=== PATIENT | female | born 1950 | race Caucasian/White ===

== ENCOUNTER → 2016-11-11 13:19 | Outpatient (CLI) | payer MEDICARE | END | disposition home or self-care (01) | LOC: D.MAMMO 10:00 | DX: Z12.31 Encounter for screening mammogram for malignant neoplasm of breast (principal) ==

== ENCOUNTER 2016-11-19 10:26 | Outpatient (CLI) | payer MEDICARE ==
[~2016-11-19] VITALS: Ht 175.3 cm; Wt 90.9 kg
--- NOTE | ~2016-11-19 | HEMODYNAMI ---
PATIENT:SABAS JUÁREZ MEDICAL RECORD: [id number] : 48 LOCATION:SKY ADMISSION DATE: 11/19/16 Generatedon:11/19/201613:26 Patient name: SABAS JUÁREZ Patient #: [id number] SSN: : 1950 Date of study: 11/19/2016 Page: Of Hemodynamic Procedure Report Patient Data Patient Demographics Procedure consent was obtained First Name: SABAS Gender: Female Last Name: MARQUITA : 1950 [facility] Initial: MILES Age: 66 year(s) Patient #: [id number] Race: Unknown Additional ID: [id number] Contact details Address: [address] [place] [address] State: [place] City: [place] Zip code: [address] Past Medical History Allergies Allergen Reaction Date Comments Reported Other 11/19/2016 morphine,nirtoglycerin, allergy penicillins, sulfa, tramadol. Admission Admission Data Admission Date: 11/19/2016 Admission Time: 10:26 Admit Source: Other Lab Results Lab Result Date: 11/19/2016 Lab Result Time: 11:05 Biochemistry Name Units Result Min Max BUN mg/dl 5 -*(----)-- 7 18 Creatinine mg/dl 0.7 --(*---)-- 0.6 1.3 CBC Name Units Result Min Max Hematocrit % 38.7 *-(----)-- 42 54 Hemoglobin g/dl 13.2 -*(----)-- 13.5 17.5 Procedure Procedure Types Cath Procedure Diagnostic Procedure LHC LHC w/Coronaries Procedure Description Procedure Date Procedure Date: 11/19/2016 Procedure Start Time: 13:11 Procedure End Time: 13:25 Procedure Staff Name Function Braxton Valenzuela MD Performing Physician Lauryn Isabel RT Scrub Marcus Du RN Nurse Vaughn Osborn RT Monitor Procedure Data Cath Procedure Fluoroscopy Diagnostic fluoroscopy Total fluoroscopy Time: 1.3 time: 1.3 min min Diagnostic fluoroscopy Total fluoroscopy dose: 288 dose: 288 mGy mGy Contrast Material Contrast Material Type Amount (ml) Isovue 300 59 Entry Location Entry Primary Successful Side Size Upsize Upsize Entry Closure Succes sful Closure Location (Fr) 1 (Fr) 2 (Fr) Remarks Device Remarks Femoral Left 5 Fr Exoseal artery Estimated blood loss: 5 ml Diagnostic catheters Device Type Used For End Catheter Placement Cordis 5Fr JL 4.0 Procedure Catheter (MP) Cordis 5Fr 3DRC Catheter Procedure (MP) Cordis 5Fr Pigtail Procedure Catheter (MP) Procedure Complications No complications Procedure Medications Medication Administration Route Dosage Oxygen NC 2 l/min Lidocaine 2% added to field 20 Heparin Flush Bag added to field 2 bags (1000units/500ml NS) 0.9% NaCl I.V. 100 ml/hr Versed I.V. 1 mg Fentanyl I.V. 50 mcg Versed I.V. 1 mg Fentanyl I.V. 50 mcg Versed I.V. 1 mg Fentanyl I.V. 50 mcg Hemodynamics Rest HGB: 13.2 (g/dl) Heart Rate: 77 (bpm) Pressure Samples Time Site Value (mmHg) Purpose Heart Use Rate(bpm) 13:17 LV 165/-1,26 Snapshot 79 Gradients Valve Time Site Site Mean SEP/DFP Peak To Heart Use 1 2 (mmHg) (sec/min) Peak Rate (mmHg) (bpm) Aortic 13:17 LV AO 79 Snapshots Pre Cath Intra NCS Post Cath Vital Signs Time Heart Resp SPO2 etCO2 [id number] NIBP (mmHg) Rhythm Pain Sedation Rate (ipm) (%) (mmHg) (mmHg) Status Level (bpm) 12:53:25 83 17 100 0 0 No Cuff NSR 0 (11) 10(A) , No pain 12:56:15 82 16 96 0 0 129/73(103) NSR 0 (11) 10(A) , No pain 13:00:28 77 16 95 0 0 121/69(95) NSR 0 (11) 10(A) , No pain 13:04:40 73 17 97 0 0 125/69(100) NSR 0 (11) 10(A) , No pain 13:08:53 75 16 96 0 0 128/71(97) NSR 0 (11) 10(A) , No pain 13:13:06 74 17 95 0 0 117/71(85) NSR 0 (11) 9(A) , No pain 13:17:57 81 18 96 0 0 151/78(113) NSR 0 (11) 9(A) , No pain 13:22:07 19 17 96 0 0 129/72(110) NSR 0 (11) 10(A) , No pain Medications Time Medication Route Dose Verified Delivered Reason Notes Effe ctiveness by by 12:58:06 Oxygen NC 2 Braxton Buffie used for l/min [facility] Romario Du RN procedure 12:58:16 Lidocaine 2% added 20ml Braxton Braxton for local to vial [facility] anesthetic field MD WALKER 12:58:22 Heparin Flush added 2 Braxton Braxton used for Bag to bags [facility] procedure (1000units/500ml field MD WALKER NS) 12:58:30 0.9% NaCl I.V. 100 Braxton Buffie Per ml/hr [facility] Romario Du RN physician 13:07:02 Fentanyl I.V. 50 Braxton Feliie for mcg [facility] Romario Du RN sedation 13:07:57 Versed I.V. 1 mg Braxton Buffie for [facility] Romario Du RN sedation 13:11:54 Versed I.V. 1 mg Braxton Buffie for [facility] Romario Du RN sedation 13:11:57 Fentanyl I.V. 50 Braxton Buff[address] for mcg [facility] Romario Du RN sedation 13:16:18 Versed I.V. 1 mg Braxton Buffie for [facility] Romario Du RN sedation 13:16:22 Fentanyl I.V. 50 Braxton Buffie for [facility] Du RN sedation Procedure Log Time Note 12:28:38 Informed consent obtained and on chart 12:28:41 Admit Source: Other 12:30:22 Procedure type changed to Cath procedure, Diagnostic procedure, LHC, C w/Coronaries 12:30:31 Diagnostic Cath status Elective 12:30:35 Time tracking: Regular hours 12:30:39 Plan of Care:Hemodynamics will remain stable., Cardiac rhythm will remain stable., Comfort level will be maintained., Respiratory function will remain adequate., Patient/ family verbilizes understanding of procedure., Procedure tolerated without complication., Recovers from procedure without complications.. 12:30:47 Marcus Du RN sent for patient. Start room use. 12:30:59 H&P Date Dictated: 11/05/2016 Within 30 days and on chart., H&P Addendum completed by physician on day of procedure. (MUST COMPLETE FOR ALL OUTPATIENTS). 12:33:20 Lab Result : BUN 5 mg/dl 12:33:20 Lab Result : Hematocrit 38.7 % 12:33:20 Lab Result : Hemoglobin 13.2 g/dl 12:33:20 Lab Result : Creatinine 0.7 mg/dl 12:34:46 Patient allergic to Other allergymorphine,nirtoglycerin, penicillins, sulfa, tramadol. 12:43:31 Patient received from Pre/Post Procedure Room to CCL 1 Alert and oriented. Tansferred to table in Supine position. 12:43:32 Warm blankets applied, and jazzy hugger turned on for patient comfort. 12:43:33 Correct patient and procedure confirmed by team. 12:43:33 ECG and BP/O2 sat monitors applied to patient. 12:43:47 Full Disclosure recording started 12:50:50 Vital chart was started 12:58:06 Oxygen 2 l/min NC was administered by Marcus Du RN; used for procedure; 12:58:16 Lidocaine 2% 20ml vial added to field was administered by Braxton Valenzuela MD; for local anesthetic; 12:58:22 Heparin Flush Bag (1000units/500ml NS) 2 bags added to field was administered by Braxton Valenzuela MD; used for procedure; 12:58:30 0.9% NaCl 100 ml/hr I.V. was administered by Marcus Du RN; Per physician; 12:59:25 Baseline sample Acquired. 12:59:34 Rhythm: sinus rhythm 13:00:21 H&P Date Dictated: 11/05/2016 Within 30 days and on chart., H&P Addendum completed by physician on day of procedure. (MUST COMPLETE FOR ALL OUTPATIENTS). 13:00:23 Pre-procedure instructions explained to patient. 13:00:23 Pre-op teaching completed and patient verbalized understanding. 13:00:26 Family in patients room. 13:00:27 Patient NPO since Midnight. 13:00:30 Is the patient allergic to Iodine/contrast media? No. 13:00:32 Is patient on blood thinner?No 13:01:09 Patient diabetic? No. 13:01:21 Previous problem with sedation/anesthesia? No ? 13:01:22 Snore? Yes 13:01:27 Sleep apnea? No 13:01:29 Deviated septum? No 13:01:29 Opens mouth fully? Yes 13:01:32 Sticks out tongue? Yes 13:01:34 Airway obstruction? No ? 13:01:41 Dentures? Yes in tight 13:01:47 Pre procedure: left dorsailis pedis pulse 2+ Normal; easily identifiable; not easily obliterated 13:01:49 Patient pain scale 0/10 ?. 13:02:19 IV patent on arrival in left wrist with 0.9% NaCl at [facility]. 13:02:21 Lab results completed and on chart. 13:02:33 Left groin area was prepped with chlora-prep and draped in sterile fashion 13:02:46 Alarms reviewed by R. N. 13:02:46 Sharps counted by scrub and verified by R.N. 13:02:49 Use device set Femoral Dx 13:02:49 Tegaderm 4 x 4 opened to sterile field. 13:02:51 Acist Manifold opened to sterile field. 13:02:51 Acist Hand Control opened to sterile field. 13:02:52 Acist Syringe opened to sterile field. 13:02:53 Bag Decanter opened to sterile field. 13:02:53 Medline Cath Pack opened to sterile field. 13:02:54 Terumo 5Fr [facility] Sheath opened to sterile field. 13:02:54 St Beny 260cm J .035 wire opened to sterile field. 13:02:55 Diagnostic Infinity 5Fr Multipack catheter opened to sterile field. 13:05:20 Zero performed for pressure channel P1 13:05:24 Zero performed for pressure channel P1 13:05:27 Zero performed for pressure channel P1 13:06:41 Physician arrived 13:06:42 --------ALL STOP TIME OUT------ 13:06:43 Final Timeout: patient, procedure, and site verified with staff and physician. All members of the team are in agreement. 13:06:44 Left groin site verified by team. 13:06:47 Physical assessment completed. ASA score P 2 - A patient with mild systemic disease as per Braxton Valenzuela MD. 13:06:50 Sedation plan: IV Moderate Sedation Versed, Fentanyl 13:07:02 Fentanyl 50 mcg I.V. was administered by Marcus Du RN; for sedation; 13:07:57 Versed 1 mg I.V. was administered by Marcus Du RN; for sedation; 13:11:11 Procedure started. 13:11:14 Local anesthetic to left femerol artery with Lidocaine 2% by Braxton Valenzuela MD.INITIAL ACCESS ONLY 13:11:54 Versed 1 mg I.V. was administered by Marcus Du RN; for sedation; 13:11:57 Fentanyl 50 mcg I.V. was administered by Marcus Du RN; for sedation; 13:12:07 A 5 Fr sheath was inserted into the Left Femoral artery 13:12:40 A Cordis 5Fr JL 4.0 Catheter (MP) was advanced over the wire and used for Procedure. 13:13:44 LCA angiography performed. 13:14:53 Catheter exchanged over wire. 13:14:57 A Cordis 5Fr 3DRC Catheter (MP) was advanced over the wire and used for Procedure. 13:15:54 RCA angiography performed. 13:16:02 Catheter exchanged over wire. 13:16:07 A Cordis 5Fr Pigtail Catheter (MP) was advanced over the wire and used for Procedure. 13:16:18 Versed 1 mg I.V. was administered by Marcus Du RN; for sedation; 13:16:22 Fentanyl 50 mcg I.V. was administered by Marcus Du RN; for sedation; 13:17:22 LV gram done using ESTRELLA 13:17:25 Injector settings: Ml/sec: 10, Volume: 20, 13:17:29 EF : 55 % 13:17:43 Cordis 5Fr Exoseal opened to sterile field. 13:17:47 Catheter removed. 13:17:59 Sheath removed intact; hemostasis achieved with Exoseal to the Left Femoral artery. 13:18:00 Procedure ended.(Physican Out) 13:18:22 Contrast amount:Isovue 300 59ml. 13:18:33 Fluoroscopy time 01.30 minutes. 13:18:37 Fluoroscopy dose: 288 mGy 13:18:37 Flurop Dose total: 288 13:19:06 Sharps counted by scrub and verified by R.N. 13:19:08 Insertion/operative site no bleeding no hematoma. 13:19:11 Post-op/insertion site Left Femoral artery dressed using a 4 x 4 and Tegaderm. 13:19:15 Post left femerol artery:stable, soft, clean and dry 13:19:17 Post Procedure Pulses reassessed and unchanged 13:19:19 Post-procedure physical assessment completed. ASA score P 2 - A patient with mild systemic disease as per Braxton Valenzuela MD. 13:19:22 Post procedure rhythm: unchanged. 13:19:24 Estimated blood loss: 5 ml 13:19:25 Post procedure instruction explained to patient.Patient verbalizes understanding. 13:19:25 Patient needs reinforcement of post procedure teaching. 13:25:18 Procedure and supply charges have been captured, reviewed, submitted and are correct. 13:25:22 Procedure Complication : No complications 13:25:26 Vital chart was stopped 13:25:27 See physician's report for complete and final results. 13:25:29 Report given to Pre/Post Procedure Room. 13:25:31 Patient transfered to Pre/Post Procedure Room with Stretcher. 13:25:37 Procedure ended. 13:25:37 Full Disclosure recording stopped 13:25:49 End room use (Document Last) Device Usage Item Name Manufacture Quantity Catalog Hospital Part Current Minimal Lo t# / Number Charge Number Stock Stock Serial# Code Tegaderm 4 3M 1 1626W [id number] [id number] 5 x 4 Acist Acist 1 48131 712374 131504 989126 5 Manifold [employer] Inc Acist Hand Acist 1 19269 010886 551293 711023 5 Control Medical Systems Inc Acist Acist 1 83546 570097 159879 765786 20 Syringe Medical Systems Inc Bag Microtek 1 2002S 222991 10269 296536 5 DecGovenlock [employer] Medline Cardinal 1 [id number] 556144 32761 919589 5 Cath Pack Health Terumo 5Fr Terumo 1 [id number] 531237 398354 369515 [address] St Beny 1 799295 096556 204993 890274 30 260cm J .035 wire Diagnostic Cardinal 1 VG8937 908189 80506 463368 30 bCODE 5Fr Multipack catheter Cordis 5Fr Cardinal 1 391380 5 JL 4.0 Health Catheter (MP) Cordis 5Fr Cardinal 1 097750 5 3DRC Health Catheter (MP) Cordis 5Fr Cardinal 1 019300 5 Pigtail Health Catheter (MP) Cordis 5Fr Cardinal 1 EX500 006303 227051 467643 10 [facility] Health Signature Audit [place] Stage Time Signature Unsigned Intra-Procedure 11/19/2016 Vaughn Osborn 1:26:08 PM RT(R) Signatures Monitor : Vaughn Osborn RT Signature : Date : Time : [address] [place] [address]
[2016-11-19] MEDS ORDERED: TYLENOL W/CODEI1 TAB PO (10:53)
[2016-11-19] MEDS ORDERED: CYCLOBENZAPRINE10 MG PO (10:53)
[2016-11-19] MEDS ORDERED: ALENDRONATE SOD70 MG PO (10:54)
[2016-11-19] MEDS ORDERED: FISH OIL 1,2001 CAP PO (10:55)
[2016-11-19] MEDS ORDERED: VITAMIN E400 UNI2 PO (10:55)
[2016-11-19] MEDS ORDERED: EZFE 200200 MG PO (10:55)
[2016-11-19] MEDS ORDERED: VITAMIN D31000 UNIT PO (10:56)
[2016-11-19 11:08] VITALS: BP 142/77; Ht 175.3 cm; Wt 90.9 kg
[2016-11-19 11:12] LABS: HEMATOCRIT 38.7 % (36.0-48.0); HEMOGLOBIN 13.2 g/dL (12-16); MCH 30.6 pg (26.0-34.0); MCHC 34.1 g/dL (31.0-37.0); MCV 89.8 fL (80.0-100.0); MEAN PLATELET VOLUME 11.5 fL (7.4-10.4); RBC 4.31 10x6/uL (4.00-5.40); RDW 13.3 % (11.5-14.5); WBC 2.7 10x3/uL (4.8-10.8)
[2016-11-19 11:22] LABS: CALC OSMOLALITY 277 mosm/kg (275-300); CALCIUM 8.3 mg/dL (8.5-10.1); CARBON DIOXIDE 28.4 mmol/L (21.0-32.0); CHLORIDE - SERUM 107 mmol/L (98-107); CREATININE - SERUM 0.7 mg/dL (0.6-1.3); GLUCOSE 107 mg/dL (74-106); SODIUM 141 mmol/L (136-145); UREA NITROGEN 5 mg/dL (7-18); eGFR NON AFRICAN AMERICAN 88 mL/min (90-120)
[2016-11-19 11:37] LABS: PLATELET COUNT 49 10x3/uL (130-400)
[2016-11-19 12:19] LABS: EOSINOPHILS 2 % (0-7); LYMPHOCYTES 28 % (15-50); MONOCYTES 4 % (2-11); NEUTROPHILS 65 % (40-80); PLATELET ESTIMATE DECREASED; ROULEAUX OCC
--- NOTE | 2016-11-19 13:39 | NUR ---
1330 RECIEVED TO ROOM VIA STRETCHER FROM SCRATCHER TENDER WITH REPORTS OF A CLEAN CATH. 5 FR EXOSEAL CDI NO BLEEDING NO HEMATOMA NOTED. INSTRUCTED PATIENT TO KEEP HEAD FLAT ON PILLOW WITH LLE STRAIGHT.
--- NOTE | 2016-11-19 14:01 | NUR ---
5 FR EXOSEAL L/GROIN CDI NO BLEEDING NO HEMATOMA NOTED. VSS WITH CHEST PAIN DENIED WILL MONITOR
--- NOTE | 2016-11-19 14:35 | NUR ---
L/GROIN CDI NO BLEEDING NO HEMATOMA NOTED. FAMILY AT SIDE
--- NOTE | 2016-11-19 15:02 | NUR ---
REPOSITIONED TO SITTING WITH HOB UP 45 DEGREES. 5 FR EXOSEAL L/GROIN CDI NO BLEEDING NO HEMATOMA NOTED. CHEST PAIN IS DENIED WITH VSS,SANDWICH AND SODA OPENED WITH FAMILY TO ASSIST
--- NOTE | 2016-11-19 15:17 | NUR ---
PIV REMOVED WITH DRESSING APPLIED. L/GROIN REMAINS CDI NO BLEEDING NO HEMATOMA NOTED. CHEST PAIN IS DENIED. PATIENT UP TO GET DRESSED FOR DISCHARGE HOME WITH FAMILY
--- NOTE | 2016-11-19 15:31 | NUR ---
VERBAL AND WRITTEN DISCHARGE GONE OVER WITH PATIENT AND FAMILY. L/GROIN REMIANS CDI NO BLEEDING NO HEMATOMA NOTED. CHEST PAIN IS DENIED. LEFT VIA WC TO PARKING FOR TRANSPORT HOME
--- NOTE | 2016-11-20 14:41 | OP ---
PATIENT NAME: SABAS JUÁREZ MEDICAL RECORD: [id number] :48 LOCATION:D.CAT ADMISSION DATE: SURGEON: MANISHA MARIE MD DATE OF OPERATION: 11/19/2016 PROCEDURES: Left heart catheterization, selective coronary angiography, left femoral artery approach. CATHETERS: A 5-Australian sheath, 5/4 left and right Reji, 5/4 pig. The procedure was well tolerated. The patient returned to the bruce, sheath removed. ExoSeal device placed. FINDINGS: Left ventriculography in the 30-degree ESTRELLA view: Normal wall motion, normal systolic function. CORONARY ANATOMY: LEFT MAIN: Left main is free of disease. LAD: Free of disease in the diagonal system. CIRCUMFLEX: Free of disease in the marginal system. RIGHT CORONARY ARTERY: Dominant artery, gives rise to PDA, free of disease. IMPRESSION: Normal left ventricular systolic function, normal coronary anatomy. TRANSINT:[id number] Voice Confirmation ID: [id number] DOCUMENT ID: [id number] MANISHA MARIE MD at 1441 CC: [id number] DICTATION DATE: 11/19/16 1325 AIR CONDITIONING MECHANIC INDUSTRIAL: 11/19/16 1821 DEP CLI 11/19/16 [address] [place] [address]
== END 2016-11-19 15:35 ==
LOC: D.CATH 10:26
PROVIDERS: Internal Medicine Interventional Cardiology
DX: I20.9 Angina pectoris, unspecified (principal); Z01.812 Encounter for preprocedural laboratory examination

== ENCOUNTER → 2016-11-29 08:06 | Outpatient (CLI) | payer MEDICARE ==
[2016-11-19 11:08] VITALS: BMI 29.6
[~2016-11-29 08:06] MED LIST: ALENDRONATE SOD70 MG PO; CYCLOBENZAPRINE10 MG PO; EZFE 200200 MG PO; FISH OIL 1,2001 CAP PO; TYLENOL W/CODEI1 TAB PO; VITAMIN D31000 UNIT PO; VITAMIN E400 UNI2 PO
[2016-11-29 09:19] LABS: BASOPHILS 0.6 % (0-2); EOSINOPHILS 1.8 % (0-7); HEMATOCRIT 39.5 % (36.0-48.0); HEMOGLOBIN 13.8 g/dL (12-16); LYMPHOCYTES 26.2 % (15-50); MCH 31.2 pg (26.0-34.0); MCHC 34.9 g/dL (31.0-37.0); MCV 89.2 fL (80.0-100.0); MEAN PLATELET VOLUME 12.2 fL (7.4-10.4); MONOCYTES 5.7 % (2-11); NEUTROPHILS 65.7 % (40-80); RBC 4.43 10x6/uL (4.00-5.40); RDW 13.5 % (11.5-14.5); WBC 3.4 10x3/uL (4.8-10.8)
[2016-11-29 09:32] LABS: INR 1.19 (0.85-1.17)
[2016-11-29 09:35] LABS: PLATELET COUNT 66 10x3/uL (130-400)
[2016-11-29 09:53] LABS: ALBUMIN 3.5 g/dL (3.4-5.0); ALKALINE PHOSPHATASE 99 U/L (46-116); ALT (SGPT) 41 U/L (10-68); BILIRUBIN - DIRECT 0.33 mg/dL (0.00-0.30); BILIRUBIN - INDIRECT 1.22 mg/dL (0.00-1.00); BILIRUBIN - TOTAL 1.55 mg/dL (0.2-1.3); CALC OSMOLALITY 274 mosm/kg (275-300); CALCIUM 8.6 mg/dL (8.5-10.1); CARBON DIOXIDE 27.7 mmol/L (21.0-32.0); CHLORIDE - SERUM 103 mmol/L (98-107); CHOLESTEROL, TOTAL 146 mg/dL (0-200); CREATININE - SERUM 0.8 mg/dL (0.6-1.3); FERRITIN 282 ng/mL (3-244); GAMMA GT 54 U/L (5-85); GLUCOSE 120 mg/dL (74-106); HDL CHOLESTEROL 49 mg/dL (32-96); LDL CHOLESTEROL 80 mg/dL (0-100); LDL-HDL RATIO 1.6 ratio (1.5-3.5); POTASSIUM - SERUM 4.1 mmol/L (3.5-5.1); PROTEIN - SERUM 7.8 g/dL (6.4-8.2); SODIUM 138 mmol/L (136-145); TRIGLYCERIDE 88 mg/dL (30-200); UREA NITROGEN 6 mg/dL (7-18); eGFR NON AFRICAN AMERICAN 76 mL/min (90-120)
[2016-11-29 10:03] LABS: % SATURATION 52 % (15-55); IRON 134 ug/dl (35-150); TOTAL IRON BIND CAPACITY 256 ug/dl (260-445); UNSAT IRON BIND CAPACITY 122 ug/dl (150-375)
[2016-11-30 07:20] LABS: HEPATITIS C ANTIBODY <0.1 (0.0-0.9)
[2016-12-02 09:09] LABS: ANA REFLEX - DIRECT Negative (Negative)
[2016-12-02 14:14] LABS: HAPTOGLOBIN <10 mg/dL (34-200)
[2016-12-02 15:18] LABS: MITOCHONDRIAL ANTIBODY 14.6 Units (0.0-20.0); SMOOTH MUSCLE ABS (ACTIN) 39 Units (0-19)
== END | disposition home or self-care (01) ==
LOC: D.US 08:06
PROVIDERS: Internal Medicine Gastroenterology
DX: R74.8 Abnormal levels of other serum enzymes (principal)

== ENCOUNTER → 2016-12-10 16:46 | Outpatient (CLI) | payer MEDICARE ==
[2016-11-19 11:08] VITALS: BMI 29.6
== END | disposition home or self-care (01) ==
LOC: D.MAMMO 09:00
DX: R92.8 Other abnormal and inconclusive findings on diagnostic imaging of breast (principal)

== ENCOUNTER 2016-12-13 10:01 | Outpatient (CLI) | payer MEDICARE ==
[~2016-12-13] VITALS: Ht 175.3 cm; Wt 90.0 kg
[2016-12-13 10:50] LABS: BASOPHILS 0.3 % (0-2); EOSINOPHILS 2.9 % (0-7); HEMATOCRIT 39.7 % (36.0-48.0); HEMOGLOBIN 13.5 g/dL (12-16); LYMPHOCYTES 32.9 % (15-50); MCH 30.5 pg (26.0-34.0); MCV 89.8 fL (80.0-100.0); MEAN PLATELET VOLUME 12.4 fL (7.4-10.4); MONOCYTES 5.5 % (2-11); NEUTROPHILS 58.4 % (40-80); PLATELET COUNT 65 10x3/uL (130-400); RBC 4.42 10x6/uL (4.00-5.40); RDW 13.3 % (11.5-14.5); WBC 3.1 10x3/uL (4.8-10.8)
[2016-12-13 11:06] LABS: ANION GAP 12.3 mmol/L (8-16); CALCIUM 8.8 mg/dL (8.5-10.1); CARBON DIOXIDE 27.4 mmol/L (21.0-32.0); CREATININE - SERUM 0.9 mg/dL (0.6-1.3); POTASSIUM - SERUM 3.7 mmol/L (3.5-5.1)
[2016-12-13 11:09] LABS: APTT 34.4 SECONDS (22.8-39.4); INR 1.27 (0.85-1.17); PROTIME 15.8 SECONDS (11.6-15.0)
[2016-12-13 11:23] VITALS: BP 126/79; Ht 175.3 cm; Wt 90.0 kg
--- NOTE | 2016-12-13 19:57 | NUR ---
1800 IV DC WITH CATHER TIP INTACT
== END 2016-12-13 18:40 | disposition home or self-care (01) ==
LOC: D.OPS 10:01 → D.CT 14:00 → D.OPS 18:40
PROVIDERS: General Practice
DX: R79.89 Other specified abnormal findings of blood chemistry (principal); J44.9 Chronic obstructive pulmonary disease, unspecified; K44.9 Diaphragmatic hernia without obstruction or gangrene; Z01.812 Encounter for preprocedural laboratory examination

== ENCOUNTER → 2017-01-02 09:03 | Outpatient (CLI) | payer MEDICARE ==
[2016-12-13 11:23] VITALS: BMI 29.3
[2017-01-02 09:29] LABS: INR 1.31 (0.85-1.17); PROTIME 16.2 SECONDS (11.6-15.0)
== END | disposition home or self-care (01) ==
LOC: D.LAB 08:15
PROVIDERS: Internal Medicine Gastroenterology
DX: D69.6 Thrombocytopenia, unspecified (principal)

== ENCOUNTER → 2017-01-06 10:25 | Day surgery (SDC) | payer MEDICARE ==
[~2017-01-06] VITALS: Ht 175.3 cm; Wt 87.3 kg
--- NOTE | ~2017-01-06 | OP ---
PATIENT NAME: SABAS JUÁREZ MEDICAL RECORD: [id number] :48 LOCATION:BRANDI ADMISSION DATE: SURGEON: NED DARLING DO DATE OF OPERATION: 01/06/2017 PROCEDURE: Colonoscopy with polypectomy and submucosal injection. INDICATION FOR PROCEDURE: Positive stool guaiac. SCOPE: Olympus video pediatric colonoscope. MEDICATIONS: Propofol 780 mg IV per anesthesia. WITHDRAWAL TIME: 49 minutes. ESTIMATED BLOOD LOSS: Less than 5 mL. COMPLICATIONS: None. FINDINGS: Informed consent was given. The patient was made comfortable with the above medication. After reaching an adequate level of sedation by slow IV push, the patient was placed on her left side. A digital rectal examination was performed and revealed some external hemorrhoids, which were nonbleeding and small. The endoscope was then advanced under direct visualization through the rectum to the cecum with visualization of the appendiceal orifice and the ileocecal valve. The scope was slowly withdrawn and mucosa was carefully examined. The prep quality was good. In the descending colon, there were 2 benign-appearing sessile polyps measuring approximately 5 mm to 6 mm in diameter. They were both removed using a hot snare in one piece and completely retrieved. In the rectum, there were 3 benign-appearing sessile polyps, which could be hyperplastic, located in the rectum. They were measuring from 6 mm to 8 mm in diameter. They were all removed in one piece using hot snare and completely retrieved. In the sigmoid colon, there was a large polyp which measured approximately 2 cm to 3 cm in size. It occupied approximately 75% of the lumen of the sigmoid colon. It was located approximately 30 cm from the anal verge. A polypectomy was attempted on this polyp. Multiple piecemeal resections were performed using a hot snare. Once enough of the polyp was removed, it was evident that this was a larger polyp that initially anticipated. It appeared to be infiltrative into the wall of the colon at the base and was also bleeding extensively, likely related to the patient's low platelet level, in 50,000s. Some cauterization was performed to the best of my ability to slow and stop the bleeding from the polyp site. Tattoo was placed both proximally and distally for marking for future endoscopic or surgical resections required. Scope was then withdrawn from the patient. The patient tolerated the procedure well and there were no complications. IMPRESSIONS: 1. Multiple polyps as described above. All were removed except for the sigmoid polyp. A large portion of this polyp was removed, but there was still residual base. Tattoo was placed proximally and distally to aid in future resection. 2. Retroflexion was performed on the examination and there were both internal and external hemorrhoids. PLAN AND RECOMMENDATIONS: 1. Discharge home when recovery parameters are met. OPERATIVE REPORT [id number] SABAS JUÁREZ 2. Monitor for bleeding. 3. Avoid NSAIDs for 10-14 days. 4. Continue current medications. 5. High-fiber diet. 6. Referral to Dr. Honeycutt for consideration of APC therapy versus surgical resection pending results of the polyp pathology. 7. Recall colonoscopy will be dependent on future interventions for residual polyp tissue. TRANSINT:[id number] Voice Confirmation ID: [id number] DOCUMENT ID: [id number] NED DARLING DO CC: [id number] DICTATION DATE: 01/06/17 1547 PRINCIPAL GIFTS OFFICER: 01/06/172009 [facility] [address] [place] [address]
[2017-01-06 11:53] LABS: INR 1.27 (0.85-1.17); PROTIME 15.8 SECONDS (11.6-15.0)
[2017-01-06 12:57] LABS: HEMATOCRIT 40.1 % (36.0-48.0); HEMOGLOBIN 13.8 g/dL (12-16); MCH 30.7 pg (26.0-34.0); MCHC 34.4 g/dL (31.0-37.0); MCV 89.3 fL (80.0-100.0); MEAN PLATELET VOLUME 13.6 fL (7.4-10.4); RBC 4.49 10x6/uL (4.00-5.40); RDW 13.4 % (11.5-14.5)
[2017-01-06 13:08] VITALS: BP 127/63; Ht 175.3 cm; Wt 87.3 kg
--- NOTE | 2017-01-06 15:29 | NUR ---
1528-INJECT DANNI INK APPROX 7CC TO SIGMOID POLYP AREA.
--- NOTE | 2017-01-06 17:09 | NUR ---
1615 DR[address] PRINGLE CONSULTED BY DR. YARY HOFF SHOWN PICTURES AND WILL STATES WILL WAIT TILL PATH REPORTS ARE IN, PT. HAS APPT AND APPT MAY BE MOVED UP IF PATHOLOGY WARRENTS.
== END | disposition home or self-care (01) ==
LOC: D.OPS 10:25
PROVIDERS: Anesthesiology; Internal Medicine Gastroenterology
DX: R19.5 Other fecal abnormalities (principal); D69.6 Thrombocytopenia, unspecified; R16.2 Hepatomegaly with splenomegaly, not elsewhere classified; D12.4 Benign neoplasm of descending colon; D12.5 Benign neoplasm of sigmoid colon; K62.1 Rectal polyp; K64.8 Other hemorrhoids; K64.4 Residual hemorrhoidal skin tags; Z01.812 Encounter for preprocedural laboratory examination

== ENCOUNTER 2017-01-09 09:41 | Day surgery (SDC) | payer MEDICARE ==
[~2017-01-09] VITALS: Ht 175.3 cm; Wt 87.3 kg
[2017-01-09 10:50] VITALS: BP 123/53; Ht 175.3 cm; Wt 87.3 kg
== END 2017-01-09 13:40 | disposition home or self-care (01) ==
LOC: D.OPS 09:41
DX: K21.0 Gastro-esophageal reflux disease with esophagitis (principal); K44.9 Diaphragmatic hernia without obstruction or gangrene; I85.00 Esophageal varices without bleeding; K76.6 Portal hypertension; K31.89 Other diseases of stomach and duodenum; Z01.812 Encounter for preprocedural laboratory examination

== ENCOUNTER 2017-04-23 08:57 | Day surgery (SDC) | payer MEDICARE ==
[~2017-04-23] VITALS: Ht 175.3 cm; Wt 8.2 kg
--- NOTE | ~2017-04-23 | OP ---
PATIENT NAME: SABAS JUÁREZ MEDICAL RECORD: [id number] :48 LOCATION:D.OPS ADMISSION DATE: SURGEON: CONCHA PRINGLE MD DATE OF OPERATION: 04/23/2017 PREOPERATIVE DIAGNOSIS: Tubulovillous adenoma at 30 cm which has not been completely removed. POSTOPERATIVE DIAGNOSES: Tubulovillous adenoma at 30 cm which has not been completely removed with firm polyp at 30 cm, also another cecal polyp that was 1.8 cm linear polyp that appeared to be adenomatous. Arteriovenous malformation of the ascending colon. PROCEDURES: 1. Total colonoscopy to cecum. 2. Chronic polypectomy utilizing the snare with submucosal epinephrine injection and ablation of the polypoid base with the argon plasma crowning hammer operator. 3. Ablation of arteriovenous malformation of the ascending colon. 4. Hot biopsy forceps polypectomy times 1. SURGEON: Concha Pringle MD DIESEL ENGINE ENGINEER: None. BLOOD LOSS: Minimal. ANESTHESIA: General. COMPLICATIONS: None. The risks, possible complications, and alternatives to the procedure were explained to the patient. She elects to proceed. OPERATIVE COURSE: The patient was conveyed to the operating room electively on 04/23/2017. General anesthesia was induced by the anesthesia staff. The patient was placed in the Meneses position. A digital rectal examination was performed. A colonoscope was inserted through the anus. It was easily advanced to the cecum. The prep was excellent. A cecal hot biopsy forceps polypectomy was performed. I then slowly withdrew the endoscope. I identified the arteriovenous malformation in the ascending colon. Utilizing hot biopsy forceps, I ablated this without biopsy. I then continued to withdraw the endoscope. I used a combination of direct imaging as well as narrow band imaging, the endoscope is withdrawn to 30 cm. The tattooed polyp was easily identifiable. I advanced the sclerotherapy needle and injected epinephrine at the base of the polyp for postoperative hemostasis. I was disappointed that we really did not get to lift on the polyp. I performed snare polypectomy of polyp. I then grasped the excised polyp with an endoscopic retrieval net and withdrew out through the anus. I then readvanced the colonoscope to the polypoid base. This was biopsied several times utilizing the cold endoscopic biopsy forceps. I then ablated the base with the argon plasma crowning hammer operator utilizing the right colon setting in the forced mode. The endoscope was withdrawn into the rectum. The retroflexed view was obtained in the rectum. I then unretroflexed the scope and removed it under direct vision. OPERATIVE REPORT [id number] SABAS JUÁREZ The patient was then conveyed to post-anesthesia care unit. I will see the patient in my office in 2-3 weeks. It is very likely at that time I will recommend another colonoscopy with the argon plasma crowning hammer operator in 1 year. TRANSINT:[id number] Voice Confirmation ID: [id number] DOCUMENT ID: [id number] CONCHA PRINGLE MD at 0938 CC: MYA LYONS MD and NED DARLING DO [id number] DICTATION DATE: 04/23/17 1433 HARVESTING CONTRACTOR: 04/23/17 1505 [facility] 04/23/17 [id number] [place] [address]
--- NOTE | ~2017-04-23 | HP ---
PATIENT: SABAS JUÁREZ MEDICAL RECORD: [id number] ACCOUNT: [id number] LOCATION:DebbyBEBA : 48 ADMISSION DATE: 04/23/17 HISTORY AND PHYSICAL EXAMINATION HISTORY: This patient has a sessile polyp at 30 cm which could not be completely removed by Dr. Askew during the patient's last endoscopy. I have been asked to perform polypectomy with the argon plasma senior fund accountant. The polyp was at 30 cm. Biopsies of the polyp revealed a tubular adenoma. There is a history and physical examination on the chart. The risks, possible complications, and alternatives to procedure were explained to the patient. He elects to proceed. The history and physical examination is unchanged from the type one in the chart. TRANSINT:[id number] Voice Confirmation ID: [id number] DOCUMENT ID: [id number] CONCHA PRINGLE MD at 0938 CC: MYA LYONS MD and NED ASKEW DO [id number] DICTATION DATE: 04/23/17 1426 RETORT ENGINEER: 04/23/17 1451 [facility] 04/23/17 [facility] [address] [place] [address]
[2017-04-23 09:53] LABS: HEMATOCRIT 41.6 % (36.0-48.0); HEMOGLOBIN 14.3 g/dL (12-16); MCH 30.7 pg (26.0-34.0); MCHC 34.4 g/dL (31.0-37.0); MCV 89.3 fL (80.0-100.0); MEAN PLATELET VOLUME 12.1 fL (7.4-10.4); RBC 4.66 10x6/uL (4.00-5.40); RDW 13.5 % (11.5-14.5); WBC 4.1 10x3/uL (4.8-10.8)
[2017-04-23 10:24] VITALS: BP 142/70; Ht 175.3 cm; Wt 8.2 kg
== END 2017-04-23 15:45 | disposition home or self-care (01) ==
LOC: D.OPS 08:57 → D.PAN 11:00 → D.OPS 11:00 → D.PAN 12:30 → D.OPS 12:40 → D.PAN 12:40 → D.OPS 15:45
PROVIDERS: Anesthesiology
DX: K63.5 Polyp of colon (principal); J44.9 Chronic obstructive pulmonary disease, unspecified; K75.9 Inflammatory liver disease, unspecified; Z01.812 Encounter for preprocedural laboratory examination; Z01.810 Encounter for preprocedural cardiovascular examination

== ENCOUNTER 2017-06-11 08:00 | Inpatient (IN) | payer MEDICARE ==
[~2017-06-11] VITALS: Ht 175.3 cm; Wt 82.6 kg
[2017-06-11] VITALS (11 sets, daily range): BP systolic 98–138; BP diastolic 50–94
--- NOTE | ~2017-06-11 | CN ---
PATIENT NAME:SABAS MARTINEZ MEDICAL RECORD: [id number] : 48 LOCATION:D.MS [id number] ADMIT DATE: 06/11/17 ACCOUNT: [id number] CONSULTING PHYSICIAN: VIVIAN FORD MD REFERRING PHYSICIAN: CONCHA PRINGLE MD DATE OF CONSULTATION: 06/17/2017 CONSULTING PHYSICIAN: Concha Pringle MD MIX HOUSE TENDER: Vivian Ford MD From ENT. REASON FOR CONSULTATION: Nasal lesion. HISTORY OF PRESENT ILLNESS: Ms. Martinez is in ICU, yesterday they called me about her, they noticed ulcer on her nose from NG tube. The NG tube was removed at that time and they asked me to come and see her about that. She had an NG tube in the left side of the nose. She is intubated and sedated. PHYSICAL EXAMINATION: GENERAL: She is sedated. FACE: Her face though she is normal and symmetric. The only area of concern is the left side of the nose. She does not have any tape or tubes or the packing in the nose. EYES: Sclerae and conjunctivae are normal. ORAL CAVITY AND OROPHARYNX: Normal, intubated. Lips are normal. NECK: No masses. No adenopathy. NOSE: Intranasal exam looks good. No blood or masses. The right nostril looks good. The left nostril. She has a pressure ulcer on the soft triangle anterior to the left nostril. Overall, it is about 4-5 mm in total diameter, but there was only a small area of the ulcer, may be 2 mm that is full thickness. There is no exposed cartilage. It is relatively smooth at this point with no deep ulceration or anything. IMPRESSION: Pressure necrosis, left side of the nose. There is no exposed cartilage and most of it is superficial with just a small deep area, they can put in some mupirocin ointment on it and of course nothing in the nostril to continued any pressure. I think that is all we can only do for that at this point, just keep it clean, antibiotic ointment on it and see how it is going to do as far as healing it, there is really no notching of alar rim or anything like that at this point, it should heal fairly nicely, I think with conservative care. TRANSINT:[id number] Voice Confirmation ID: [id number] DOCUMENT ID: [id number] VIVIAN FORD MD at 1044 CC: CONCHA PRINGLE [id number] DICTATION DATE: 06/17/17 1508 HANDICAPPER HARNESS RACING: 06/17/17 1547 DIS IN 07/07/17 [facility] [address] [place] [address]
--- NOTE | ~2017-06-11 | OP ---
PATIENT NAME: SABAS JUÁREZ MEDICAL RECORD: [id number] :48 LOCATION:D.ICU D.2303 ADMISSION DATE:06/11/17 SURGEON: CISCO JIANG MD DATE OF OPERATION: 06/21/2017 PREOPERATIVE DIAGNOSES: 1. Fungemia. 2. Possible line-related sepsis. 3. Respiratory failure on a ventilator. 4. Cirrhosis. 5. Mesenteric thrombosis, on heparin drip. POSTOPERATIVE DIAGNOSES: 1. Fungemia. 2. Possible line-related sepsis. 3. Respiratory failure on a ventilator. 4. Cirrhosis. 5. Mesenteric thrombosis, on heparin drip. PROCEDURES: 1. Left subclavian vein triple-lumen central venous line placement. 2. Removal of right IJ central venous line. SURGEON: Cisco Jiang MD REPORT OF PROCEDURE: The patient's left chest was prepped and draped in sterile fashion. After 5 mL of 1% lidocaine was infused into subcutaneous tissues, a needle was used to cannulate the left subclavian vein. A guidewire was advanced with ease. Once the wire was in place, then the right internal jugular catheter was removed and the catheter tip was sent for specimen. A new central line was placed over the indwelling guidewire. Once the wire was removed, the catheter was flushed with normal saline. All 3 ports aspirated nonpulsatile dark blood and flushed easily. We then sutured the catheter into place with 3-0 silk ties and dressed it appropriately. COMPLICATIONS: None. CONDITION: Fair. ANESTHESIA: Local and general endotracheal. BLOOD LOSS: Minimal. Procedure done in the ICU at the bedside. TRANSINT:[id number] Voice Confirmation ID: [id number] DOCUMENT ID: [id number] OPERATIVE REPORT [id number] SABAS JUÁREZ CISCO ORANTES MD at 1319 CC: [id number] DICTATION DATE: 06/21/17 1427 YARD PILOT: 06/21/17 2343 [place] [address]
--- NOTE | ~2017-06-11 | CN ---
PATIENT NAME:SABAS MARTINEZ MEDICAL RECORD: [id number] : 48 LOCATION:D.MS [facility]5 ADMIT DATE: 06/11/17 ACCOUNT: [id number] CONSULTING PHYSICIAN: JEOVANNY CARTY MD REFERRING PHYSICIAN: WILMER PRINGLE MD DATE OF CONSULTATION: 06/12/2017 CONSULT REQUESTING PHYSICIAN: Wilmer Pringle MD REASON FOR CONSULTATION: Vent management. HISTORY OF PRESENT ILLNESS: Ms. Martinez is a 67-year-old female, who is now orally intubated and sedated. The history was taken by reviewing the patient's notes. The patient underwent for hand-assisted laparoscopic colectomy yesterday for sessile polyps that has been converted to open laparotomy. The patient underwent liver biopsy, splenectomy, and partial colectomy. Now, the abdominal wound is open. She is going back to the surgery tomorrow. The patient is an ex-smoker, but there is no documented COPD. REVIEW OF SYSTEMS: The details is not obtainable. PAST MEDICAL HISTORY: 1. History of rheumatoid arthritis. 2. Cirrhosis of liver. 3. She has blood clots in the ventricle. PAST SURGICAL HISTORY: 1. She is now status post laparotomy, splenectomy, liver biopsy, and subtotal colectomy. 2. Appendectomy. 3. Hysterectomy. 4. Left breast lumpectomy. ALLERGIES: SHE IS ALLERGIC TO PENICILLIN, SULFA, MORPHINE, NITROGLYCERIN, AND TRAMADOL. PRESENT MEDICATIONS: She is on meropenem IV, propofol, and her other medication is reviewed. PERSONAL AND SOCIAL HISTORY: The patient is an ex-smoker. She is a nondrinker. FAMILY HISTORY: Significant for neurological disorder and cardiovascular diseases. PHYSICAL EXAMINATION: GENERAL: Now, the patient is orally intubated and sedated. VITAL SIGNS: The blood pressure 125/70, pulse is 109, respirations 19, temperature 97.5, and SPO2 is 97% on 40% assist control mechanical ventilation. Tidal volume of 500. HEENT: Conjunctivae is pink, sclerae nonicteric. NECK: Supple, no JVD. CHEST: Excursion is minimal on both sides. There is no wheeze, no rales. HEART: Rhythm regular, normal sound, no murmur. ABDOMEN: The abdomen has open wound, the bowel sounds are absent. RECTAL: Deferred. CONSULT REPORT [id number] SABAS MARTINEZ EXTREMITIES: No cyanosis, no clubbing, no pedal edema. CENTRAL NERVOUS SYSTEM: There are no obvious cranial nerve abnormalities. The patient is orally intubated and sedated. CHEST RADIOGRAPH: There are increased interstitial marking, the ET tube is in good position. OTHER LABORATORY DATA: CBC: The WBC is 3000, hemoglobin 14, hematocrit 41.5, the platelet count is 55,000. Chemistry: Sodium is 142, potassium 4.6, chloride 110, bicarbonate is 17.6, BUN is 8, creatinine 1.2. ABG: The pH is 7.32, pCO2 is 33.1, the pO2 is 197, bicarbonate is 17.4. IMPRESSION: 1. Acute hypoxic respiratory failure post-procedure. 2. Status post laparotomy, subtotal colectomy, splenectomy, and liver biopsy. 3. Thrombocytopenia, most likely secondary to hypersplenism. 4. Cirrhosis of liver. 5. Leukopenia. 6. Ex-smoker, suspect chronic obstructive pulmonary disease. 7. Rheumatoid arthritis. 8. 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 RECOMMENDATION: 1. We will continue mechanical ventilation, adjust the setting. 2. Albuterol and ipratropium nebulizer. 3. Continue meropenem. 4. Start on bicarb drip for the metabolic acidosis. 5. Follow up labs and chest radiograph. 6. DVT and GI ulcer prevention. Dr. Pringle, thank you for involving me in the care of Ms. Martinez. TRANSINT:[id number] Voice Confirmation ID: [id number] DOCUMENT ID: [id number] JEOVANNY CARTY MD at 1340 CC: WILMER PRINGLE [id number] DICTATION DATE: 06/12/17 1032 LOUVER DOOR ASSEMBLER: 06/12/17 1110 DIS IN 07/07/[address] [facility] [address] [place] [address]
[~2017-06-11 08:00] MED LIST changes: +L-LYSINE500 M1 PO
[2017-06-11 10:30] LABS: APTT 33.8 SECONDS (22.8-39.4); INR 1.36 (0.85-1.17); PROTIME 16.3 SECONDS (11.6-15.0)
[2017-06-11 10:38] LABS: BASOPHILS 0.3 % (0-2); EOSINOPHILS 3.4 % (0-7); HEMATOCRIT 41.5 % (36.0-48.0); LYMPHOCYTES 30.3 % (15-50); MCH 30.3 pg (26.0-34.0); MCHC 33.7 g/dL (31.0-37.0); MCV 89.8 fL (80.0-100.0); MEAN PLATELET VOLUME 13.6 fL (7.4-10.4); MONOCYTES 4.7 % (2-11); NEUTROPHILS 61.3 % (40-80); PLATELET COUNT 55 10x3/uL (130-400); RBC 4.62 10x6/uL (4.00-5.40); RDW 13.9 % (11.5-14.5)
[2017-06-11 10:39] LABS: ALBUMIN 3.7 g/dL (3.4-5.0); ALKALINE PHOSPHATASE 97 U/L (46-116); ALT (SGPT) 39 U/L (10-68); CALC OSMOLALITY 276 mosm/kg (275-300); CALCIUM 8.6 mg/dL (8.5-10.1); CARBON DIOXIDE 25.8 mmol/L (21.0-32.0); CHLORIDE - SERUM 103 mmol/L (98-107); CREATININE - SERUM 0.7 mg/dL (0.6-1.3); GLUCOSE 112 mg/dL (74-106); POTASSIUM - SERUM 3.7 mmol/L (3.5-5.1); SODIUM 139 mmol/L (136-145); UREA NITROGEN 6 mg/dL (7-18); eGFR NON AFRICAN AMERICAN 88 mL/min (90-120)
[2017-06-11 10:59] LABS: PLATELET ESTIMATE DECREASED
[2017-06-11 20:45] LABS: BASOPHILS 0.2 % (0-2); EOSINOPHILS 0.2 % (0-7); LYMPHOCYTES 11.2 % (15-50); MCH 30.2 pg (26.0-34.0); MCHC 33.4 g/dL (31.0-37.0); MCV 90.3 fL (80.0-100.0); MEAN PLATELET VOLUME 10.4 fL (7.4-10.4); MONOCYTES 2.7 % (2-11); NEUTROPHILS 85.7 % (40-80); RDW 13.6 % (11.5-14.5)
[2017-06-11 20:53] LABS: HEMATOCRIT 29.9 % (36.0-48.0); PLATELET COUNT 99 10x3/uL (130-400); RBC 3.31 10x6/uL (4.00-5.40); WBC 4.5 10x3/uL (4.8-10.8)
[2017-06-12] VITALS (32 sets, daily range): BP systolic 70–125; BP diastolic 40–70; Ht 175.3 cm; Wt 82.6 kg
[2017-06-12 00:39] LABS: HEMATOCRIT 37.8 % (36.0-48.0); HEMOGLOBIN 12.4 g/dL (12-16)
[2017-06-12 06:05] LABS: BASOPHILS 0 % (0-2); EOSINOPHILS 0 % (0-7); HEMATOCRIT 38.8 % (36.0-48.0); HEMOGLOBIN 13.1 g/dL (12-16); IMMATURE GRANULOCYTES 0.3 % (0-5); LYMPHOCYTES 3.5 % (15-50); MCH 30.4 pg (26.0-34.0); MCHC 33.8 g/dL (31.0-37.0); MEAN PLATELET VOLUME 11.1 fL (7.4-10.4); MONOCYTES 7.4 % (2-11); NEUTROPHILS 88.8 % (40-80); PLATELET COUNT 106 10x3/uL (130-400); RDW 14.2 % (11.5-14.5)
[2017-06-12 06:25] LABS: INR 1.35 (0.85-1.17); PROTIME 16.2 SECONDS (11.6-15.0)
[2017-06-12 06:29] LABS: RBC 4.31 10x6/uL (4.00-5.40); WBC 7.5 10x3/uL (4.8-10.8)
[2017-06-12 07:35] LABS: ALKALINE PHOSPHATASE 54 U/L (46-116); ALT (SGPT) 35 U/L (10-68); AMYLASE - SERUM 74 U/L (25-115); BILIRUBIN - TOTAL 1.13 mg/dL (0.2-1.3); CHLORIDE - SERUM 110 mmol/L (98-107); LIPASE 204 U/L (73-393); MAGNESIUM - SERUM 1.3 mg/dL (1.8-2.4); PHOSPHOROUS 2.8 mg/dL (2.5-4.9); PRO BNP 365 pg/mL (0-125); SODIUM 142 mmol/L (136-145)
[2017-06-12 07:37] LABS: ALBUMIN 2.4 g/dL (3.4-5.0); CALC OSMOLALITY 284 mosm/kg (275-300); CARBON DIOXIDE 17.6 mmol/L (21.0-32.0); CREATININE - SERUM 1.2 mg/dL (0.6-1.3); GLUCOSE 177 mg/dL (74-106); POTASSIUM - SERUM 4.6 mmol/L (3.5-5.1); PROTEIN - SERUM 5.7 g/dL (6.4-8.2); TROPONIN-I < 0.017 ng/mL (0.000-0.060); UREA NITROGEN 8 mg/dL (7-18); eGFR NON AFRICAN AMERICAN 47 mL/min (90-120)
[2017-06-12 13:40] LABS: HEMATOCRIT 37.4 % (36.0-48.0); HEMOGLOBIN 12.9 g/dL (12-16)
[2017-06-13] VITALS (34 sets, daily range): BP systolic 88–125; BP diastolic 43–89
[2017-06-13 03:07] LABS: BASOPHILS 0.2 % (0-2); EOSINOPHILS 0.2 % (0-7); HEMATOCRIT 33.6 % (36.0-48.0); IMMATURE GRANULOCYTES 1.1 % (0-5); LYMPHOCYTES 11.3 % (15-50); MCH 30.5 pg (26.0-34.0); MCHC 32.7 g/dL (31.0-37.0); MEAN PLATELET VOLUME 13.3 fL (7.4-10.4); MONOCYTES 10.2 % (2-11); RBC 3.61 10x6/uL (4.00-5.40)
[2017-06-13 03:12] LABS: MCV 93.1 fL (80.0-100.0); PLATELET COUNT 102 10x3/uL (130-400); WBC 12.9 10x3/uL (4.8-10.8)
[2017-06-13 03:23] LABS: ALBUMIN 2.6 g/dL (3.4-5.0); ANION GAP 17.7 mmol/L (8-16); BILIRUBIN - TOTAL 1.3 mg/dL (0.2-1.3); CARBON DIOXIDE 20.5 mmol/L (21.0-32.0); CREATININE - SERUM 1.1 mg/dL (0.6-1.3); MAGNESIUM - SERUM 1.1 mg/dL (1.8-2.4); POTASSIUM - SERUM 4.2 mmol/L (3.5-5.1); PROTEIN - SERUM 4.6 g/dL (6.4-8.2)
[2017-06-13 03:24] LABS: CALCIUM 6.3 mg/dL (8.5-10.1)
[2017-06-13 08:20] LABS: CEA 1.5 ng/mL (0.0-4.7)
[2017-06-13 11:19] LABS: HEPATITIS C ANTIBODY <0.1 (0.0-0.9)
[2017-06-14] VITALS (28 sets, daily range): BP systolic 100–145; BP diastolic 51–89
[2017-06-14 04:30] LABS: BASOPHILS 0.1 % (0-2); EOSINOPHILS 0 % (0-7); HEMATOCRIT 33.2 % (36.0-48.0); HEMOGLOBIN 11.3 g/dL (12-16); IMMATURE GRANULOCYTES 0.4 % (0-5); LYMPHOCYTES 3.5 % (15-50); MCH 29.2 pg (26.0-34.0); MEAN PLATELET VOLUME 12.1 fL (7.4-10.4); MONOCYTES 4.5 % (2-11); NEUTROPHILS 91.5 % (40-80); PLATELET COUNT 103 10x3/uL (130-400); RBC 3.87 10x6/uL (4.00-5.40); RDW 16.4 % (11.5-14.5)
[2017-06-14 04:45] LABS: ALKALINE PHOSPHATASE 45 U/L (46-116); ALT (SGPT) 211 U/L (10-68); CALC OSMOLALITY 288 mosm/kg (275-300); CHLORIDE - SERUM 108 mmol/L (98-107); GLUCOSE 137 mg/dL (74-106); MCV 85.8 fL (80.0-100.0); PROTEIN - SERUM 4.6 g/dL (6.4-8.2); SODIUM 144 mmol/L (136-145); UREA NITROGEN 13 mg/dL (7-18); WBC 16.3 10x3/uL (4.8-10.8)
[2017-06-14 04:46] LABS: CARBON DIOXIDE 26.2 mmol/L (21.0-32.0); CREATININE - SERUM 0.6 mg/dL (0.6-1.3); MAGNESIUM - SERUM 1.4 mg/dL (1.8-2.4); POTASSIUM - SERUM 3.4 mmol/L (3.5-5.1); eGFR NON AFRICAN AMERICAN > 90 mL/min (90-120)
[2017-06-14 04:47] LABS: ALBUMIN 1.9 g/dL (3.4-5.0); CALCIUM 6.4 mg/dL (8.5-10.1)
[2017-06-15] VITALS (26 sets, daily range): BP systolic 100–143; BP diastolic 57–89
[2017-06-15 04:31] LABS: BASOPHILS 0.1 % (0-2); EOSINOPHILS 0 % (0-7); HEMATOCRIT 31.6 % (36.0-48.0); HEMOGLOBIN 10.5 g/dL (12-16); IMMATURE GRANULOCYTES 0.6 % (0-5); LYMPHOCYTES 6.5 % (15-50); MCH 29.1 pg (26.0-34.0); MCHC 33.2 g/dL (31.0-37.0); MCV 87.5 fL (80.0-100.0); MEAN PLATELET VOLUME 12.6 fL (7.4-10.4); MONOCYTES 9.7 % (2-11); NEUTROPHILS 83.1 % (40-80); PLATELET COUNT 101 10x3/uL (130-400); RBC 3.61 10x6/uL (4.00-5.40); RDW 16.2 % (11.5-14.5); WBC 23.6 10x3/uL (4.8-10.8)
[2017-06-15 04:50] LABS: ALBUMIN 1.5 g/dL (3.4-5.0); ALKALINE PHOSPHATASE 53 U/L (46-116); BILIRUBIN - TOTAL 1.29 mg/dL (0.2-1.3); CALC OSMOLALITY 289 mosm/kg (275-300); CARBON DIOXIDE 30.9 mmol/L (21.0-32.0); CHLORIDE - SERUM 110 mmol/L (98-107); CREATININE - SERUM 0.5 mg/dL (0.6-1.3); GLUCOSE 147 mg/dL (74-106); POTASSIUM - SERUM 3.3 mmol/L (3.5-5.1); PROTEIN - SERUM 4.4 g/dL (6.4-8.2); SODIUM 144 mmol/L (136-145); UREA NITROGEN 13 mg/dL (7-18); eGFR NON AFRICAN AMERICAN > 90 mL/min (90-120)
[2017-06-15 04:57] LABS: MAGNESIUM - SERUM 1.8 mg/dL (1.8-2.4)
[2017-06-15 04:58] LABS: ALT (SGPT) 149 U/L (10-68); PHOSPHOROUS 0.8 mg/dL (2.5-4.9)
[2017-06-15 16:49] LABS: POTASSIUM - SERUM 3.5 mmol/L (3.5-5.1)
[2017-06-15 16:52] LABS: PHOSPHOROUS 1.5 mg/dL (2.5-4.9)
[2017-06-16] VITALS (34 sets, daily range): BP systolic 101–157; BP diastolic 52–99
[2017-06-16 04:03] LABS: BASOPHILS 0.1 % (0-2); HEMATOCRIT 34.1 % (36.0-48.0); HEMOGLOBIN 11.1 g/dL (12-16); IMMATURE GRANULOCYTES 0.7 % (0-5); LYMPHOCYTES 12.8 % (15-50); MCH 29.1 pg (26.0-34.0); MCHC 32.6 g/dL (31.0-37.0); MCV 89.3 fL (80.0-100.0); MEAN PLATELET VOLUME 12.4 fL (7.4-10.4); MONOCYTES 18.1 % (2-11); NEUTROPHILS 67.3 % (40-80); PLATELET COUNT 101 10x3/uL (130-400); RBC 3.82 10x6/uL (4.00-5.40); RDW 16.3 % (11.5-14.5)
[2017-06-16 04:23] LABS: ALBUMIN 1.6 g/dL (3.4-5.0); ALKALINE PHOSPHATASE 86 U/L (46-116); ALT (SGPT) 140 U/L (10-68); BILIRUBIN - TOTAL 1.44 mg/dL (0.2-1.3); CALC OSMOLALITY 291 mosm/kg (275-300); CALCIUM 7.4 mg/dL (8.5-10.1); CARBON DIOXIDE 27.2 mmol/L (21.0-32.0); CHLORIDE - SERUM 111 mmol/L (98-107); CREATININE - SERUM 0.5 mg/dL (0.6-1.3); GLUCOSE 144 mg/dL (74-106); MAGNESIUM - SERUM 1.8 mg/dL (1.8-2.4); POTASSIUM - SERUM 3.8 mmol/L (3.5-5.1); PROTEIN - SERUM 4.9 g/dL (6.4-8.2); SODIUM 145 mmol/L (136-145); UREA NITROGEN 12 mg/dL (7-18); eGFR NON AFRICAN AMERICAN > 90 mL/min (90-120)
[2017-06-16 04:24] LABS: PHOSPHOROUS 2.2 mg/dL (2.5-4.9)
[2017-06-17] VITALS (24 sets, daily range): BP systolic 91–143; BP diastolic 54–91
[2017-06-17 05:09] LABS: BASOPHILS 0.1 % (0-2); EOSINOPHILS 3.8 % (0-7); HEMATOCRIT 30.1 % (36.0-48.0); HEMOGLOBIN 9.7 g/dL (12-16); IMMATURE GRANULOCYTES 1.6 % (0-5); LYMPHOCYTES 9.5 % (15-50); MCHC 32.2 g/dL (31.0-37.0); MCV 90.1 fL (80.0-100.0); MEAN PLATELET VOLUME 12.7 fL (7.4-10.4); MONOCYTES 19.1 % (2-11); NEUTROPHILS 65.9 % (40-80); PLATELET COUNT 114 10x3/uL (130-400); RBC 3.34 10x6/uL (4.00-5.40); RDW 16.1 % (11.5-14.5); WBC 12.3 10x3/uL (4.8-10.8)
[2017-06-17 05:29] LABS: ALBUMIN 1.6 g/dL (3.4-5.0); ALKALINE PHOSPHATASE 77 U/L (46-116); CALC OSMOLALITY 287 mosm/kg (275-300); CALCIUM 7.3 mg/dL (8.5-10.1); CARBON DIOXIDE 26.2 mmol/L (21.0-32.0); CHLORIDE - SERUM 111 mmol/L (98-107); CREATININE - SERUM 0.6 mg/dL (0.6-1.3); GLUCOSE 147 mg/dL (74-106); MAGNESIUM - SERUM 1.9 mg/dL (1.8-2.4); PHOSPHOROUS 2.4 mg/dL (2.5-4.9); POTASSIUM - SERUM 3.7 mmol/L (3.5-5.1); PROTEIN - SERUM 4.5 g/dL (6.4-8.2); SODIUM 143 mmol/L (136-145); UREA NITROGEN 13 mg/dL (7-18); eGFR NON AFRICAN AMERICAN > 90 mL/min (90-120)
[2017-06-17 05:33] LABS: ALT (SGPT) 97 U/L (10-68)
[2017-06-17 22:10] LABS: PLT ASSOCIATED ANTI-IA/IIA Positive (Negative); PLT ASSOCIATED ANTI-IB/IX Positive (Negative)
[2017-06-18] VITALS (24 sets, daily range): BP systolic 103–143; BP diastolic 49–93
[2017-06-18 03:30] LABS: BASOPHILS 0.2 % (0-2); EOSINOPHILS 1.4 % (0-7); HEMATOCRIT 32.2 % (36.0-48.0); HEMOGLOBIN 10.3 g/dL (12-16); LYMPHOCYTES 8.7 % (15-50); MCH 28.9 pg (26.0-34.0); MCV 90.2 fL (80.0-100.0); MONOCYTES 17.6 % (2-11); NEUTROPHILS 71.1 % (40-80); PLATELET COUNT 129 10x3/uL (130-400); RBC 3.57 10x6/uL (4.00-5.40); RDW 16.3 % (11.5-14.5); WBC 12.2 10x3/uL (4.8-10.8)
[2017-06-18 03:41] LABS: CALC OSMOLALITY 281 mosm/kg (275-300); CALCIUM 7.6 mg/dL (8.5-10.1); CARBON DIOXIDE 24.3 mmol/L (21.0-32.0); CHLORIDE - SERUM 110 mmol/L (98-107); CREATININE - SERUM 0.5 mg/dL (0.6-1.3); GLUCOSE 156 mg/dL (74-106); MAGNESIUM - SERUM 1.7 mg/dL (1.8-2.4); PHOSPHOROUS 2.6 mg/dL (2.5-4.9); POTASSIUM - SERUM 3.9 mmol/L (3.5-5.1); SODIUM 140 mmol/L (136-145); UREA NITROGEN 12 mg/dL (7-18); eGFR NON AFRICAN AMERICAN > 90 mL/min (90-120)
[2017-06-19] VITALS (48 sets, daily range): BP systolic 79–128; BP diastolic 4–80
[2017-06-19 05:38] LABS: ALBUMIN 1.8 g/dL (3.4-5.0); ALKALINE PHOSPHATASE 64 U/L (46-116); ALT (SGPT) 95 U/L (10-68); BILIRUBIN - DIRECT 0.34 mg/dL (0.00-0.30); BILIRUBIN - INDIRECT 0.64 mg/dL (0.00-1.00); BILIRUBIN - TOTAL 0.98 mg/dL (0.2-1.3); CALC OSMOLALITY 279 mosm/kg (275-300); CALCIUM 7.3 mg/dL (8.5-10.1); CARBON DIOXIDE 25.5 mmol/L (21.0-32.0); CHLORIDE - SERUM 109 mmol/L (98-107); CREATININE - SERUM 0.5 mg/dL (0.6-1.3); GLUCOSE 139 mg/dL (74-106); MAGNESIUM - SERUM 1.7 mg/dL (1.8-2.4); PHOSPHOROUS 2.6 mg/dL (2.5-4.9); POTASSIUM - SERUM 3.7 mmol/L (3.5-5.1); PROTEIN - SERUM 4.6 g/dL (6.4-8.2); SODIUM 139 mmol/L (136-145); UREA NITROGEN 12 mg/dL (7-18); eGFR NON AFRICAN AMERICAN > 90 mL/min (90-120)
[2017-06-19 08:12] LABS: BASOPHILS 0.1 % (0-2); EOSINOPHILS 1.8 % (0-7); HEMATOCRIT 30.9 % (36.0-48.0); HEMOGLOBIN 9.8 g/dL (12-16); IMMATURE GRANULOCYTES 0.7 % (0-5); LYMPHOCYTES 8.8 % (15-50); MCH 28.7 pg (26.0-34.0); MCHC 31.7 g/dL (31.0-37.0); MCV 90.4 fL (80.0-100.0); MONOCYTES 14.5 % (2-11); NEUTROPHILS 74.1 % (40-80); PLATELET COUNT 139 10x3/uL (130-400); RBC 3.42 10x6/uL (4.00-5.40); RDW 16.2 % (11.5-14.5); WBC 12.3 10x3/uL (4.8-10.8)
[2017-06-19 12:55] LABS: HEMATOCRIT 33.3 % (36.0-48.0); HEMOGLOBIN 10.8 g/dL (12-16)
[2017-06-19 16:53] LABS: APTT 34.7 SECONDS (22.8-39.4); INR 1.38 (0.85-1.17); PROTIME 16.5 SECONDS (11.6-15.0)
[2017-06-19 17:00] LABS: HEMATOCRIT 31.4 % (36.0-48.0); MCH 28.7 pg (26.0-34.0); MCHC 31.8 g/dL (31.0-37.0); MCV 90.2 fL (80.0-100.0); MEAN PLATELET VOLUME 13.9 fL (7.4-10.4); RBC 3.48 10x6/uL (4.00-5.40); WBC 13.9 10x3/uL (4.8-10.8)
[2017-06-19 22:59] LABS: HEMATOCRIT 35.8 % (36.0-48.0); HEMOGLOBIN 11.3 g/dL (12-16)
[2017-06-20] VITALS (26 sets, daily range): BP systolic 97–151; BP diastolic 4–87
[2017-06-20 05:16] LABS: BASOPHILS 0.3 % (0-2); EOSINOPHILS 0.1 % (0-7); HEMOGLOBIN 9.6 g/dL (12-16); IMMATURE GRANULOCYTES 0.6 % (0-5); LYMPHOCYTES 9.3 % (15-50); MCH 28.6 pg (26.0-34.0); MCV 89.3 fL (80.0-100.0); MEAN PLATELET VOLUME 12.5 fL (7.4-10.4); MONOCYTES 7.3 % (2-11); NEUTROPHILS 82.4 % (40-80); PLATELET COUNT 187 10x3/uL (130-400); RBC 3.36 10x6/uL (4.00-5.40); RDW 15.8 % (11.5-14.5); WBC 13.8 10x3/uL (4.8-10.8)
[2017-06-20 06:17] LABS: ALBUMIN 2.1 g/dL (3.4-5.0); ALKALINE PHOSPHATASE 64 U/L (46-116); ALT (SGPT) 96 U/L (10-68); CALC OSMOLALITY 282 mosm/kg (275-300); CALCIUM 7.2 mg/dL (8.5-10.1); CHLORIDE - SERUM 109 mmol/L (98-107); CREATININE - SERUM 0.6 mg/dL (0.6-1.3); GLUCOSE 111 mg/dL (74-106); POTASSIUM - SERUM 3.7 mmol/L (3.5-5.1); PROTEIN - SERUM 4.9 g/dL (6.4-8.2); SODIUM 141 mmol/L (136-145); UREA NITROGEN 15 mg/dL (7-18); eGFR NON AFRICAN AMERICAN > 90 mL/min (90-120)
[2017-06-21] VITALS (24 sets, daily range): BP systolic 100–133; BP diastolic 47–83
[2017-06-21 05:08] LABS: BASOPHILS 0.3 % (0-2); EOSINOPHILS 1.1 % (0-7); HEMATOCRIT 29.7 % (36.0-48.0); HEMOGLOBIN 9.4 g/dL (12-16); IMMATURE GRANULOCYTES 0.4 % (0-5); LYMPHOCYTES 14.8 % (15-50); MCH 28.5 pg (26.0-34.0); MCHC 31.6 g/dL (31.0-37.0); MEAN PLATELET VOLUME 13.4 fL (7.4-10.4); MONOCYTES 14.2 % (2-11); NEUTROPHILS 69.2 % (40-80); RDW 16.2 % (11.5-14.5)
[2017-06-21 05:11] LABS: PLATELET COUNT 251 10x3/uL (130-400)
[2017-06-21 05:28] LABS: ALBUMIN 2.2 g/dL (3.4-5.0); ALKALINE PHOSPHATASE 59 U/L (46-116); ALT (SGPT) 78 U/L (10-68); CALC OSMOLALITY 281 mosm/kg (275-300); CALCIUM 7.3 mg/dL (8.5-10.1); CARBON DIOXIDE 23.7 mmol/L (21.0-32.0); CHLORIDE - SERUM 108 mmol/L (98-107); CREATININE - SERUM 0.6 mg/dL (0.6-1.3); GLUCOSE 95 mg/dL (74-106); POTASSIUM - SERUM 3.5 mmol/L (3.5-5.1); SODIUM 141 mmol/L (136-145); UREA NITROGEN 16 mg/dL (7-18); eGFR NON AFRICAN AMERICAN > 90 mL/min (90-120)
[2017-06-22] VITALS (24 sets, daily range): BP systolic 100–129; BP diastolic 44–58
[2017-06-22 04:17] LABS: BASOPHILS 0.6 % (0-2); EOSINOPHILS 1.3 % (0-7); HEMATOCRIT 31.2 % (36.0-48.0); HEMOGLOBIN 9.9 g/dL (12-16); IMMATURE GRANULOCYTES 0.3 % (0-5); LYMPHOCYTES 20.3 % (15-50); MCH 28.5 pg (26.0-34.0); MCHC 31.7 g/dL (31.0-37.0); MCV 89.9 fL (80.0-100.0); MEAN PLATELET VOLUME 12.7 fL (7.4-10.4); MONOCYTES 12.5 % (2-11); RBC 3.47 10x6/uL (4.00-5.40); RDW 16.3 % (11.5-14.5); WBC 14.9 10x3/uL (4.8-10.8)
[2017-06-22 04:24] LABS: PLATELET COUNT 334 10x3/uL (130-400)
[2017-06-22 04:48] LABS: ALBUMIN 2.3 g/dL (3.4-5.0); ALKALINE PHOSPHATASE 60 U/L (46-116); ALT (SGPT) 75 U/L (10-68); BILIRUBIN - TOTAL 1.24 mg/dL (0.2-1.3); CALC OSMOLALITY 278 mosm/kg (275-300); CALCIUM 7.9 mg/dL (8.5-10.1); CARBON DIOXIDE 25.1 mmol/L (21.0-32.0); CHLORIDE - SERUM 106 mmol/L (98-107); CREATININE - SERUM 0.7 mg/dL (0.6-1.3); GLUCOSE 89 mg/dL (74-106); MAGNESIUM - SERUM 1.9 mg/dL (1.8-2.4); PHOSPHOROUS 2.7 mg/dL (2.5-4.9); POTASSIUM - SERUM 3.5 mmol/L (3.5-5.1); PROTEIN - SERUM 5.3 g/dL (6.4-8.2); SODIUM 140 mmol/L (136-145); UREA NITROGEN 14 mg/dL (7-18); eGFR NON AFRICAN AMERICAN 88 mL/min (90-120)
[2017-06-23] VITALS (24 sets, daily range): BP systolic 93–136; BP diastolic 49–81
[2017-06-23 03:53] LABS: BASOPHILS 0.7 % (0-2); EOSINOPHILS 1.4 % (0-7); HEMATOCRIT 30.1 % (36.0-48.0); HEMOGLOBIN 9.5 g/dL (12-16); IMMATURE GRANULOCYTES 0.5 % (0-5); LYMPHOCYTES 19.4 % (15-50); MCH 28.3 pg (26.0-34.0); MCHC 31.6 g/dL (31.0-37.0); MCV 89.6 fL (80.0-100.0); MEAN PLATELET VOLUME 12.3 fL (7.4-10.4); MONOCYTES 11.5 % (2-11); NEUTROPHILS 66.5 % (40-80); RBC 3.36 10x6/uL (4.00-5.40); RDW 16.3 % (11.5-14.5); WBC 15.5 10x3/uL (4.8-10.8)
[2017-06-23 03:57] LABS: PLATELET COUNT 413 10x3/uL (130-400)
[2017-06-23 04:13] LABS: ALBUMIN 2.3 g/dL (3.4-5.0); ALKALINE PHOSPHATASE 56 U/L (46-116); ALT (SGPT) 60 U/L (10-68); BILIRUBIN - TOTAL 1.46 mg/dL (0.2-1.3); CALC OSMOLALITY 278 mosm/kg (275-300); CALCIUM 8.1 mg/dL (8.5-10.1); CARBON DIOXIDE 26.3 mmol/L (21.0-32.0); CHLORIDE - SERUM 106 mmol/L (98-107); CREATININE - SERUM 0.6 mg/dL (0.6-1.3); GLUCOSE 92 mg/dL (74-106); MAGNESIUM - SERUM 1.8 mg/dL (1.8-2.4); PHOSPHOROUS 2.8 mg/dL (2.5-4.9); POTASSIUM - SERUM 3.2 mmol/L (3.5-5.1); PROTEIN - SERUM 5.3 g/dL (6.4-8.2); SODIUM 140 mmol/L (136-145); UREA NITROGEN 13 mg/dL (7-18); eGFR NON AFRICAN AMERICAN > 90 mL/min (90-120)
[2017-06-24] VITALS (24 sets, daily range): BP systolic 99–145; BP diastolic 42–85
[2017-06-24 04:49] LABS: BASOPHILS 0.4 % (0-2); EOSINOPHILS 0.4 % (0-7); HEMATOCRIT 31.4 % (36.0-48.0); HEMOGLOBIN 9.9 g/dL (12-16); IMMATURE GRANULOCYTES 0.5 % (0-5); LYMPHOCYTES 11.4 % (15-50); MCH 28.6 pg (26.0-34.0); MCHC 31.5 g/dL (31.0-37.0); MCV 90.8 fL (80.0-100.0); MEAN PLATELET VOLUME 13.2 fL (7.4-10.4); MONOCYTES 8.5 % (2-11); NEUTROPHILS 78.8 % (40-80); PLATELET COUNT 438 10x3/uL (130-400); RBC 3.46 10x6/uL (4.00-5.40); RDW 16.7 % (11.5-14.5); WBC 16.8 10x3/uL (4.8-10.8)
[2017-06-24 05:13] LABS: ALBUMIN 2.3 g/dL (3.4-5.0); ALKALINE PHOSPHATASE 53 U/L (46-116); ALT (SGPT) 50 U/L (10-68); CALCIUM 7.7 mg/dL (8.5-10.1); CARBON DIOXIDE 25.5 mmol/L (21.0-32.0); CHLORIDE - SERUM 108 mmol/L (98-107); CREATININE - SERUM 0.5 mg/dL (0.6-1.3); MAGNESIUM - SERUM 1.9 mg/dL (1.8-2.4); PROTEIN - SERUM 5.5 g/dL (6.4-8.2); SODIUM 142 mmol/L (136-145); UREA NITROGEN 11 mg/dL (7-18); eGFR NON AFRICAN AMERICAN > 90 mL/min (90-120)
[2017-06-24 05:14] LABS: CALC OSMOLALITY 286 mosm/kg (275-300); GLUCOSE 181 mg/dL (74-106)
[2017-06-24 05:23] LABS: PHOSPHOROUS 2.3 mg/dL (2.5-4.9)
[2017-06-25] VITALS (24 sets, daily range): BP systolic 105–142; BP diastolic 51–80
[2017-06-25 04:02] LABS: BASOPHILS 0.2 % (0-2); EOSINOPHILS 1.9 % (0-7); HEMATOCRIT 29.6 % (36.0-48.0); HEMOGLOBIN 9.3 g/dL (12-16); IMMATURE GRANULOCYTES 0.4 % (0-5); LYMPHOCYTES 12.8 % (15-50); MCH 28.9 pg (26.0-34.0); MCHC 31.4 g/dL (31.0-37.0); MCV 91.9 fL (80.0-100.0); MEAN PLATELET VOLUME 12.1 fL (7.4-10.4); MONOCYTES 8.7 % (2-11); PLATELET COUNT 373 10x3/uL (130-400); RBC 3.22 10x6/uL (4.00-5.40); RDW 17.1 % (11.5-14.5); WBC 16.6 10x3/uL (4.8-10.8)
[2017-06-25 04:18] LABS: ALBUMIN 2.3 g/dL (3.4-5.0); ALKALINE PHOSPHATASE 51 U/L (46-116); ALT (SGPT) 39 U/L (10-68); BILIRUBIN - TOTAL 1.62 mg/dL (0.2-1.3); CALC OSMOLALITY 283 mosm/kg (275-300); CALCIUM 8.2 mg/dL (8.5-10.1); CARBON DIOXIDE 29.1 mmol/L (21.0-32.0); CHLORIDE - SERUM 108 mmol/L (98-107); CREATININE - SERUM 0.5 mg/dL (0.6-1.3); GLUCOSE 157 mg/dL (74-106); MAGNESIUM - SERUM 1.8 mg/dL (1.8-2.4); POTASSIUM - SERUM 3.5 mmol/L (3.5-5.1); PROTEIN - SERUM 5.5 g/dL (6.4-8.2); SODIUM 142 mmol/L (136-145); eGFR NON AFRICAN AMERICAN > 90 mL/min (90-120)
[2017-06-25 04:28] LABS: UREA NITROGEN 7 mg/dL (7-18)
[2017-06-26] VITALS (24 sets, daily range): BP systolic 98–122; BP diastolic 30–80
[2017-06-26 05:45] LABS: BASOPHILS 0.3 % (0-2); EOSINOPHILS 1.8 % (0-7); HEMATOCRIT 28.3 % (36.0-48.0); HEMOGLOBIN 8.8 g/dL (12-16); IMMATURE GRANULOCYTES 0.4 % (0-5); LYMPHOCYTES 14.3 % (15-50); MCH 28.8 pg (26.0-34.0); MCHC 31.1 g/dL (31.0-37.0); MCV 92.5 fL (80.0-100.0); MEAN PLATELET VOLUME 12.1 fL (7.4-10.4); MONOCYTES 10.7 % (2-11); NEUTROPHILS 72.5 % (40-80); PLATELET COUNT 351 10x3/uL (130-400); RBC 3.06 10x6/uL (4.00-5.40); RDW 17.7 % (11.5-14.5)
[2017-06-26 06:09] LABS: ALBUMIN 2.4 g/dL (3.4-5.0); ALKALINE PHOSPHATASE 49 U/L (46-116); ALT (SGPT) 33 U/L (10-68); CALC OSMOLALITY 280 mosm/kg (275-300); CALCIUM 7.7 mg/dL (8.5-10.1); CARBON DIOXIDE 26.6 mmol/L (21.0-32.0); CHLORIDE - SERUM 108 mmol/L (98-107); CREATININE - SERUM 0.4 mg/dL (0.6-1.3); GLUCOSE 142 mg/dL (74-106); PHOSPHOROUS 2.8 mg/dL (2.5-4.9); POTASSIUM - SERUM 3.9 mmol/L (3.5-5.1); PROTEIN - SERUM 5.6 g/dL (6.4-8.2); SODIUM 141 mmol/L (136-145); UREA NITROGEN 8 mg/dL (7-18); eGFR NON AFRICAN AMERICAN > 90 mL/min (90-120)
[2017-06-27] VITALS (24 sets, daily range): BP systolic 93–145; BP diastolic 47–81
[2017-06-27 03:35] LABS: BASOPHILS 0.3 % (0-2); EOSINOPHILS 2.5 % (0-7); HEMATOCRIT 29.2 % (36.0-48.0); HEMOGLOBIN 9.1 g/dL (12-16); IMMATURE GRANULOCYTES 0.3 % (0-5); LYMPHOCYTES 12.6 % (15-50); MCHC 31.2 g/dL (31.0-37.0); MONOCYTES 10.8 % (2-11); NEUTROPHILS 73.5 % (40-80); PLATELET COUNT 293 10x3/uL (130-400); RBC 3.14 10x6/uL (4.00-5.40); RDW 17.5 % (11.5-14.5); WBC 15.1 10x3/uL (4.8-10.8)
[2017-06-27 03:52] LABS: ALBUMIN 2.4 g/dL (3.4-5.0); ALKALINE PHOSPHATASE 52 U/L (46-116); ALT (SGPT) 28 U/L (10-68); BILIRUBIN - TOTAL 1.37 mg/dL (0.2-1.3); CALCIUM 8.1 mg/dL (8.5-10.1); CARBON DIOXIDE 26.5 mmol/L (21.0-32.0); CHLORIDE - SERUM 106 mmol/L (98-107); MAGNESIUM - SERUM 1.9 mg/dL (1.8-2.4); PROTEIN - SERUM 5.8 g/dL (6.4-8.2); SODIUM 138 mmol/L (136-145); UREA NITROGEN 7 mg/dL (7-18)
[2017-06-27 03:54] LABS: CALC OSMOLALITY 285 mosm/kg (275-300); CREATININE - SERUM 0.6 mg/dL (0.6-1.3); GLUCOSE 306 mg/dL (74-106); PHOSPHOROUS 3.7 mg/dL (2.5-4.9); POTASSIUM - SERUM 4.8 mmol/L (3.5-5.1); eGFR NON AFRICAN AMERICAN > 90 mL/min (90-120)
[2017-06-28] VITALS (24 sets, daily range): BP systolic 101–138; BP diastolic 46–83
[2017-06-28 04:38] LABS: BASOPHILS 0.4 % (0-2); EOSINOPHILS 2.4 % (0-7); HEMATOCRIT 29.2 % (36.0-48.0); HEMOGLOBIN 9.1 g/dL (12-16); IMMATURE GRANULOCYTES 0.4 % (0-5); LYMPHOCYTES 18.2 % (15-50); MCH 28.7 pg (26.0-34.0); MCHC 31.2 g/dL (31.0-37.0); MCV 92.1 fL (80.0-100.0); MEAN PLATELET VOLUME 11.7 fL (7.4-10.4); NEUTROPHILS 63.6 % (40-80); PLATELET COUNT 269 10x3/uL (130-400); RBC 3.17 10x6/uL (4.00-5.40); RDW 17.4 % (11.5-14.5)
[2017-06-28 05:14] LABS: ALBUMIN 2.5 g/dL (3.4-5.0); ALKALINE PHOSPHATASE 53 U/L (46-116); ALT (SGPT) 27 U/L (10-68); BILIRUBIN - TOTAL 1.22 mg/dL (0.2-1.3); CALC OSMOLALITY 272 mosm/kg (275-300); CARBON DIOXIDE 26.1 mmol/L (21.0-32.0); CHLORIDE - SERUM 104 mmol/L (98-107); CREATININE - SERUM 0.6 mg/dL (0.6-1.3); GLUCOSE 149 mg/dL (74-106); MAGNESIUM - SERUM 1.8 mg/dL (1.8-2.4); PHOSPHOROUS 3.1 mg/dL (2.5-4.9); POTASSIUM - SERUM 4.3 mmol/L (3.5-5.1); SODIUM 136 mmol/L (136-145); UREA NITROGEN 7 mg/dL (7-18); eGFR NON AFRICAN AMERICAN > 90 mL/min (90-120)
[2017-06-29] VITALS (11 sets, daily range): BP systolic 106–151; BP diastolic 46–77
[2017-06-29 05:54] LABS: CALC OSMOLALITY 267 mosm/kg (275-300); CALCIUM 8.3 mg/dL (8.5-10.1); CARBON DIOXIDE 25.4 mmol/L (21.0-32.0); CHLORIDE - SERUM 102 mmol/L (98-107); CREATININE - SERUM 0.6 mg/dL (0.6-1.3); GLUCOSE 141 mg/dL (74-106); MAGNESIUM - SERUM 1.7 mg/dL (1.8-2.4); PHOSPHOROUS 3.2 mg/dL (2.5-4.9); SODIUM 134 mmol/L (136-145); UREA NITROGEN 8 mg/dL (7-18); eGFR NON AFRICAN AMERICAN > 90 mL/min (90-120)
[2017-06-29 12:08] LABS: AMPHOTERICIN B MIC 1.0 ug/mL (())
[2017-06-30 04:00] VITALS: BP 120/49
[2017-06-30 05:14] LABS: BASOPHILS 0.1 % (0-2); EOSINOPHILS 1.8 % (0-7); HEMOGLOBIN 9.1 g/dL (12-16); IMMATURE GRANULOCYTES 0.2 % (0-5); LYMPHOCYTES 11.1 % (15-50); MCH 28.5 pg (26.0-34.0); MCHC 31.4 g/dL (31.0-37.0); MCV 90.9 fL (80.0-100.0); MEAN PLATELET VOLUME 11.9 fL (7.4-10.4); MONOCYTES 15.8 % (2-11); PLATELET COUNT 223 10x3/uL (130-400); RBC 3.19 10x6/uL (4.00-5.40); RDW 16.8 % (11.5-14.5); WBC 15.8 10x3/uL (4.8-10.8)
[2017-06-30 05:45] LABS: CALC OSMOLALITY 269 mosm/kg (275-300); CALCIUM 8.5 mg/dL (8.5-10.1); CHLORIDE - SERUM 101 mmol/L (98-107); CREATININE - SERUM 0.6 mg/dL (0.6-1.3); GLUCOSE 129 mg/dL (74-106); MAGNESIUM - SERUM 1.9 mg/dL (1.8-2.4); PHOSPHOROUS 3.3 mg/dL (2.5-4.9); POTASSIUM - SERUM 4.2 mmol/L (3.5-5.1); SODIUM 135 mmol/L (136-145); UREA NITROGEN 8 mg/dL (7-18); eGFR NON AFRICAN AMERICAN > 90 mL/min (90-120)
[2017-06-30 08:25] VITALS: BP 126/54
[2017-06-30 14:08] VITALS: BP 130/64
[2017-06-30 16:47] VITALS: BP 115/66
[2017-06-30 20:00] VITALS: BP 103/59
[2017-07-01 04:00] VITALS: BP 150/68
[2017-07-01 05:05] LABS: BASOPHILS 0.2 % (0-2); EOSINOPHILS 0.5 % (0-7); HEMATOCRIT 31.1 % (36.0-48.0); HEMOGLOBIN 9.8 g/dL (12-16); IMMATURE GRANULOCYTES 0.3 % (0-5); LYMPHOCYTES 4.5 % (15-50); MCH 28.8 pg (26.0-34.0); MCHC 31.5 g/dL (31.0-37.0); MCV 91.5 fL (80.0-100.0); MEAN PLATELET VOLUME 12.9 fL (7.4-10.4); NEUTROPHILS 83.5 % (40-80); PLATELET COUNT 209 10x3/uL (130-400); RDW 16.7 % (11.5-14.5); WBC 18.7 10x3/uL (4.8-10.8)
[2017-07-01 05:20] LABS: CALC OSMOLALITY 271 mosm/kg (275-300); CALCIUM 8.8 mg/dL (8.5-10.1); CARBON DIOXIDE 25.5 mmol/L (21.0-32.0); CHLORIDE - SERUM 100 mmol/L (98-107); CREATININE - SERUM 0.7 mg/dL (0.6-1.3); GLUCOSE 170 mg/dL (74-106); PHOSPHOROUS 3.3 mg/dL (2.5-4.9); POTASSIUM - SERUM 4.3 mmol/L (3.5-5.1); SODIUM 134 mmol/L (136-145); eGFR NON AFRICAN AMERICAN 88 mL/min (90-120)
[2017-07-01 05:53] LABS: UREA NITROGEN 13 mg/dL (7-18)
[2017-07-01 09:39] VITALS: BP 123/63
[2017-07-01 12:02] VITALS: BP 134/65
[2017-07-01 16:17] VITALS: BP 124/56
[2017-07-01 20:00] VITALS: BP 131/64
[2017-07-02 04:00] VITALS: BP 152/56
[2017-07-02 04:52] LABS: BASOPHILS 0.1 % (0-2); EOSINOPHILS 1.2 % (0-7); HEMATOCRIT 30.8 % (36.0-48.0); HEMOGLOBIN 9.5 g/dL (12-16); IMMATURE GRANULOCYTES 0.2 % (0-5); LYMPHOCYTES 9.9 % (15-50); MCH 28.4 pg (26.0-34.0); MCHC 30.8 g/dL (31.0-37.0); MCV 92.2 fL (80.0-100.0); MONOCYTES 13.6 % (2-11); PLATELET COUNT 189 10x3/uL (130-400); RBC 3.34 10x6/uL (4.00-5.40); RDW 16.7 % (11.5-14.5); WBC 16.1 10x3/uL (4.8-10.8)
[2017-07-02 05:10] LABS: CALC OSMOLALITY 275 mosm/kg (275-300); CALCIUM 8.4 mg/dL (8.5-10.1); CARBON DIOXIDE 27.7 mmol/L (21.0-32.0); CHLORIDE - SERUM 101 mmol/L (98-107); CREATININE - SERUM 0.6 mg/dL (0.6-1.3); GLUCOSE 155 mg/dL (74-106); PHOSPHOROUS 3.3 mg/dL (2.5-4.9); POTASSIUM - SERUM 4.1 mmol/L (3.5-5.1); SODIUM 136 mmol/L (136-145); UREA NITROGEN 14 mg/dL (7-18); eGFR NON AFRICAN AMERICAN > 90 mL/min (90-120)
[2017-07-02 08:08] VITALS: BP 113/55
[2017-07-02 12:53] VITALS: BP 120/56
[2017-07-02 15:54] VITALS: BP 126/73
[2017-07-02 20:00] VITALS: BP 137/66
[2017-07-03] VITALS: BP 116/56
[2017-07-03 04:00] VITALS: BP 115/60
[2017-07-03 04:42] LABS: BASOPHILS 0.2 % (0-2); EOSINOPHILS 0.7 % (0-7); HEMATOCRIT 28.2 % (36.0-48.0); HEMOGLOBIN 8.9 g/dL (12-16); IMMATURE GRANULOCYTES 0.3 % (0-5); LYMPHOCYTES 10.5 % (15-50); MCH 28.6 pg (26.0-34.0); MCHC 31.6 g/dL (31.0-37.0); MCV 90.7 fL (80.0-100.0); MEAN PLATELET VOLUME 12.3 fL (7.4-10.4); MONOCYTES 11.2 % (2-11); NEUTROPHILS 77.1 % (40-80); PLATELET COUNT 218 10x3/uL (130-400); RBC 3.11 10x6/uL (4.00-5.40); RDW 16.6 % (11.5-14.5); WBC 17.3 10x3/uL (4.8-10.8)
[2017-07-03 05:08] LABS: CALC OSMOLALITY 275 mosm/kg (275-300); CALCIUM 8.4 mg/dL (8.5-10.1); CARBON DIOXIDE 28.4 mmol/L (21.0-32.0); CHLORIDE - SERUM 101 mmol/L (98-107); CREATININE - SERUM 0.7 mg/dL (0.6-1.3); GLUCOSE 147 mg/dL (74-106); MAGNESIUM - SERUM 1.8 mg/dL (1.8-2.4); PHOSPHOROUS 3.4 mg/dL (2.5-4.9); POTASSIUM - SERUM 3.8 mmol/L (3.5-5.1); SODIUM 136 mmol/L (136-145); UREA NITROGEN 14 mg/dL (7-18); eGFR NON AFRICAN AMERICAN 88 mL/min (90-120)
[2017-07-03 07:55] VITALS: BP 113/58
[2017-07-03 12:30] VITALS: BP 120/59
[2017-07-03 15:46] VITALS: BP 115/58
[2017-07-03 20:00] VITALS: BP 129/58
[2017-07-04] VITALS: BP 135/62
[2017-07-04 04:00] VITALS: BP 114/56
[2017-07-04 04:16] LABS: BASOPHILS 0.1 % (0-2); EOSINOPHILS 0.9 % (0-7); HEMATOCRIT 32.5 % (36.0-48.0); HEMOGLOBIN 10.5 g/dL (12-16); IMMATURE GRANULOCYTES 0.3 % (0-5); LYMPHOCYTES 10.9 % (15-50); MCH 29.2 pg (26.0-34.0); MCHC 32.3 g/dL (31.0-37.0); MCV 90.3 fL (80.0-100.0); MEAN PLATELET VOLUME 13.4 fL (7.4-10.4); MONOCYTES 9.8 % (2-11); PLATELET COUNT 240 10x3/uL (130-400); WBC 15.8 10x3/uL (4.8-10.8)
[2017-07-04 04:23] LABS: CALC OSMOLALITY 271 mosm/kg (275-300); CALCIUM 8.8 mg/dL (8.5-10.1); CARBON DIOXIDE 27.4 mmol/L (21.0-32.0); CHLORIDE - SERUM 99 mmol/L (98-107); CREATININE - SERUM 0.5 mg/dL (0.6-1.3); GLUCOSE 112 mg/dL (74-106); POTASSIUM - SERUM 4.3 mmol/L (3.5-5.1); SODIUM 135 mmol/L (136-145); UREA NITROGEN 14 mg/dL (7-18); eGFR NON AFRICAN AMERICAN > 90 mL/min (90-120)
[2017-07-04 08:08] VITALS: BP 109/62
[2017-07-04 09:45] LABS: MAGNESIUM - SERUM 1.7 mg/dL (1.8-2.4); PHOSPHOROUS 3.2 mg/dL (2.5-4.9)
[2017-07-04 12:57] VITALS: BP 140/64
[2017-07-04 16:37] VITALS: BP 133/60
[2017-07-04 22:00] VITALS: BP 131/66
[2017-07-05 00:32] VITALS: BP 92/59
[2017-07-05 04:00] VITALS: BP 119/60
[2017-07-05 06:34] LABS: CALC OSMOLALITY 265 mosm/kg (275-300); CALCIUM 8.8 mg/dL (8.5-10.1); CARBON DIOXIDE 24.4 mmol/L (21.0-32.0); CHLORIDE - SERUM 98 mmol/L (98-107); GLUCOSE 115 mg/dL (74-106); MAGNESIUM - SERUM 1.5 mg/dL (1.8-2.4); PHOSPHOROUS 2.7 mg/dL (2.5-4.9); SODIUM 133 mmol/L (136-145); UREA NITROGEN 11 mg/dL (7-18)
[2017-07-05 06:42] LABS: CREATININE - SERUM 0.7 mg/dL (0.6-1.3); POTASSIUM - SERUM 3.3 mmol/L (3.5-5.1); eGFR NON AFRICAN AMERICAN 88 mL/min (90-120)
[2017-07-05 08:11] VITALS: BP 121/57
[2017-07-05 12:16] VITALS: BP 112/57
[2017-07-05 16:14] VITALS: BP 130/61
[2017-07-05 20:00] VITALS: BP 136/56
[2017-07-06] VITALS: BP 131/62
[2017-07-06 04:00] VITALS: BP 136/70
[2017-07-06 04:38] LABS: CALC OSMOLALITY 266 mosm/kg (275-300); CALCIUM 8.4 mg/dL (8.5-10.1); CARBON DIOXIDE 24.8 mmol/L (21.0-32.0); CHLORIDE - SERUM 99 mmol/L (98-107); CREATININE - SERUM 0.6 mg/dL (0.6-1.3); GLUCOSE 98 mg/dL (74-106); MAGNESIUM - SERUM 1.4 mg/dL (1.8-2.4); PHOSPHOROUS 2.7 mg/dL (2.5-4.9); POTASSIUM - SERUM 3.1 mmol/L (3.5-5.1); SODIUM 134 mmol/L (136-145); UREA NITROGEN 9 mg/dL (7-18); eGFR NON AFRICAN AMERICAN > 90 mL/min (90-120)
[2017-07-06 08:06] VITALS: BP 123/58
[2017-07-06 12:12] VITALS: BP 118/53
[2017-07-06 16:27] VITALS: BP 126/60
[2017-07-06 20:00] VITALS: BP 112/55
[2017-07-07] VITALS: BP 149/58
[2017-07-07 04:58] LABS: BASOPHILS 0.1 % (0-2); HEMATOCRIT 29.6 % (36.0-48.0); HEMOGLOBIN 9.6 g/dL (12-16); IMMATURE GRANULOCYTES 0.4 % (0-5); LYMPHOCYTES 10.4 % (15-50); MCH 28.9 pg (26.0-34.0); MCHC 32.4 g/dL (31.0-37.0); MCV 89.2 fL (80.0-100.0); MEAN PLATELET VOLUME 11.9 fL (7.4-10.4); MONOCYTES 7.3 % (2-11); NEUTROPHILS 80.8 % (40-80); RBC 3.32 10x6/uL (4.00-5.40); RDW 17.3 % (11.5-14.5); WBC 14.6 10x3/uL (4.8-10.8)
[2017-07-07 05:06] LABS: PLATELET COUNT 292 10x3/uL (130-400)
[2017-07-07 05:13] LABS: CALC OSMOLALITY 262 mosm/kg (275-300); CARBON DIOXIDE 25.2 mmol/L (21.0-32.0); CHLORIDE - SERUM 99 mmol/L (98-107); CREATININE - SERUM 0.6 mg/dL (0.6-1.3); GLUCOSE 105 mg/dL (74-106); MAGNESIUM - SERUM 1.4 mg/dL (1.8-2.4); PHOSPHOROUS 2.7 mg/dL (2.5-4.9); POTASSIUM - SERUM 3.1 mmol/L (3.5-5.1); SODIUM 132 mmol/L (136-145); eGFR NON AFRICAN AMERICAN > 90 mL/min (90-120)
[2017-07-07 05:14] LABS: UREA NITROGEN 6 mg/dL (7-18)
[2017-07-07 06:00] VITALS: BP 120/63
[2017-07-07 08:45] VITALS: BP 121/58
[2017-07-07 13:11] VITALS: BP 116/64
[2017-07-07] MEDS ORDERED: ALBUTEROL2.5 MG/3 M UPD (15:06)
[2017-07-07] MEDS ORDERED: GLYCERIN A1 SUPP.REC RC (15:07)
[2017-07-07] MEDS ORDERED: PEPCID INJ20 MG/2 ML IV (15:07)
[2017-07-07] MEDS ORDERED: LASIX40 MG PO (15:07)
[2017-07-07] MEDS ORDERED: FLUTICASONE PRO16 GM NASAL (15:07)
[2017-07-07] MEDS ORDERED: SALINE NASAL SP45 ML NASAL (15:07)
[2017-07-07] MEDS ORDERED: HYDROCODON-ACE1 EAC7 PO (15:07)
[2017-07-07] MEDS ORDERED: Chloraseptic Spray [ TOPICAL (15:07)
[2017-07-07] MEDS ORDERED: FLORAJEN3 CAPS460 MG PO (15:08)
[2017-07-07] MEDS ORDERED: PROTONIX I40 MG/VIAL IV (15:08)
[2017-07-07] MEDS ORDERED: SENOKOT-S TABLE1 TAB PO (15:08)
[2017-07-07] MEDS ORDERED: NYSTATIN1 PWD TOPICAL (15:08)
[2017-07-07] MEDS ORDERED: CEFAZOLIN2 GM/50 ML IV (15:08)
[2017-07-07] MEDS ORDERED: Bactroban ointment NASAL (15:08)
[2017-07-07] MEDS ORDERED: [UNRECOGNIZED DRUG - OTHER] IV (15:09)
[2017-07-08] MEDS ORDERED: PEPCID20 MG PO (06:17)
[2017-07-08] MEDS ORDERED: PROTONIX40 MG PO (06:21)
== END 2017-07-07 18:23 | DRG 329 ==
LOC: D.SDCHOLD 08:00 → D.ICU 08:47 → D.SDCHOLD 08:47 → D.ICU 21:36 → D.MS 06-29 15:26
PROVIDERS: Anesthesiology; Internal Medicine Nephrology; Internal Medicine Pulmonary Disease; Surgery
PROC: 0FB03ZX Excision of Liver, Percutaneous Approach, Diagnostic (ICD-10-PCS; 2017-06-11)
PROC: 0DTN0ZZ Resection of Sigmoid Colon, Open Approach (ICD-10-PCS; 2017-06-11 11:00)
PROC: 0DTH0ZZ Resection of Cecum, Open Approach (ICD-10-PCS; 2017-06-11 11:00)
PROC: 07TP0ZZ Resection of Spleen, Open Approach (ICD-10-PCS; 2017-06-11 11:00)
PROC: 0BH18EZ Insertion of Endotracheal Airway into Trachea, Via Natural or Artificial Opening Endoscopic (ICD-10-PCS; principal; 2017-06-12)
PROC: 5A1955Z Respiratory Ventilation, Greater than 96 Consecutive Hours (ICD-10-PCS; 2017-06-12)
PROC: 0D1B0ZP Bypass Ileum to Rectum, Open Approach (ICD-10-PCS; 2017-06-13)
PROC: 0DB80ZZ Excision of Small Intestine, Open Approach (ICD-10-PCS; 2017-06-13)
DX: C18.9 Malignant neoplasm of colon, unspecified (principal); J96.01 Acute respiratory failure with hypoxia; J18.9 Pneumonia, unspecified organism; E43 Unspecified severe protein-calorie malnutrition; R65.21 Severe sepsis with septic shock; A41.01 Sepsis due to Methicillin susceptible Staphylococcus aureus; K76.6 Portal hypertension; D62 Acute posthemorrhagic anemia; K92.2 Gastrointestinal hemorrhage, unspecified; K56.7 Ileus, unspecified; J95.811 Postprocedural pneumothorax; B37.81 Candidal esophagitis; K92.1 Melena; J95.812 Postprocedural air leak; T80.218A Other infection due to central venous catheter, initial encounter; K74.69 Other cirrhosis of liver; D69.6 Thrombocytopenia, unspecified; E83.51 Hypocalcemia; J84.89 Other specified interstitial pulmonary diseases; M06.9 Rheumatoid arthritis, unspecified; L98.499 Non-pressure chronic ulcer of skin of other sites with unspecified severity; Z53.31 Laparoscopic surgical procedure converted to open procedure; Y95 Nosocomial condition; T81.82XA Emphysema (subcutaneous) resulting from a procedure, initial encounter; E87.6 Hypokalemia

== ENCOUNTER 2017-07-07 18:41 | Inpatient (IN) | payer MEDICARE ==
[~2017-07-07] VITALS: Ht 175.3 cm; Wt 77.1 kg
[~2017-07-07 18:41] MED LIST changes: +ALBUTEROL2.5 MG/3 M UPD; +Bactroban ointment NASAL; +CEFAZOLIN2 GM/50 ML IV; +Chloraseptic Spray [ TOPICAL; +FLORAJEN3 CAPS460 MG PO; +FLUTICASONE PRO16 GM NASAL; +GLYCERIN A1 SUPP.REC RC; +HYDROCODON-ACE1 EAC7 PO; +LASIX40 MG PO; +NYSTATIN1 PWD TOPICAL; +PEPCID INJ20 MG/2 ML IV; +PROTONIX I40 MG/VIAL IV; +SALINE NASAL SP45 ML NASAL; +SENOKOT-S TABLE1 TAB PO; +[UNRECOGNIZED DRUG - OTHER] IV
[2017-07-07 20:42] VITALS: BP 122/57; BMI 25.1
[2017-07-07 21:28] VITALS: BP 122/57
[2017-07-08] MEDS ORDERED: PEPCID20 MG PO (06:17)
[2017-07-08] MEDS ORDERED: PROTONIX40 MG PO (06:21)
[2017-07-08 07:39] LABS: BASOPHILS 0.2 % (0-2); EOSINOPHILS 0.8 % (0-7); HEMATOCRIT 31.5 % (36.0-48.0); HEMOGLOBIN 10.2 g/dL (12-16); IMMATURE GRANULOCYTES 0.6 % (0-5); LYMPHOCYTES 15.1 % (15-50); MCH 29.1 pg (26.0-34.0); MCHC 32.4 g/dL (31.0-37.0); MEAN PLATELET VOLUME 11.3 fL (7.4-10.4); MONOCYTES 5.6 % (2-11); NEUTROPHILS 77.7 % (40-80); PLATELET COUNT 283 10x3/uL (130-400); RDW 17.5 % (11.5-14.5); WBC 14.6 10x3/uL (4.8-10.8)
[2017-07-08 07:56] LABS: CALC OSMOLALITY 257 mosm/kg (275-300); CALCIUM 7.9 mg/dL (8.5-10.1); CARBON DIOXIDE 23.9 mmol/L (21.0-32.0); CHLORIDE - SERUM 96 mmol/L (98-107); CREATININE - SERUM 0.6 mg/dL (0.6-1.3); GLUCOSE 123 mg/dL (74-106); POTASSIUM - SERUM 3.5 mmol/L (3.5-5.1); SODIUM 129 mmol/L (136-145); UREA NITROGEN 7 mg/dL (7-18); eGFR NON AFRICAN AMERICAN > 90 mL/min (90-120)
[2017-07-08 08:09] VITALS: BP 115/50
[2017-07-08 12:54] VITALS: Ht 175.3 cm; Wt 77.1 kg
[2017-07-08 20:17] VITALS: BP 117/62
[2017-07-09 07:46] VITALS: BP 118/54
[2017-07-09 20:06] VITALS: BP 106/46
[2017-07-10 08:03] VITALS: BP 115/56
[2017-07-10 19:41] VITALS: BP 113/54
[2017-07-11 06:35] LABS: CALC OSMOLALITY 259 mosm/kg (275-300); CALCIUM 7.8 mg/dL (8.5-10.1); CARBON DIOXIDE 23.8 mmol/L (21.0-32.0); CHLORIDE - SERUM 100 mmol/L (98-107); CREATININE - SERUM 0.6 mg/dL (0.6-1.3); GLUCOSE 105 mg/dL (74-106); POTASSIUM - SERUM 3.4 mmol/L (3.5-5.1); SODIUM 131 mmol/L (136-145); UREA NITROGEN 4 mg/dL (7-18); eGFR NON AFRICAN AMERICAN > 90 mL/min (90-120)
[2017-07-11 07:02] LABS: BASOPHILS 0.4 % (0-2); EOSINOPHILS 0.7 % (0-7); HEMATOCRIT 29.6 % (36.0-48.0); HEMOGLOBIN 9.9 g/dL (12-16); IMMATURE GRANULOCYTES 0.5 % (0-5); LYMPHOCYTES 24.7 % (15-50); MCH 29.6 pg (26.0-34.0); MCHC 33.4 g/dL (31.0-37.0); MCV 88.4 fL (80.0-100.0); MEAN PLATELET VOLUME 11.4 fL (7.4-10.4); NEUTROPHILS 65.7 % (40-80); PLATELET COUNT 208 10x3/uL (130-400); RBC 3.35 10x6/uL (4.00-5.40); RDW 17.4 % (11.5-14.5); WBC 13.3 10x3/uL (4.8-10.8)
[2017-07-11 08:00] VITALS: BP 118/55
[2017-07-11 19:15] VITALS: BP 117/54
[2017-07-12 08:00] VITALS: BP 128/62
[2017-07-12 20:15] VITALS: BP 111/55
[2017-07-13 07:40] VITALS: BP 112/58
[2017-07-13 20:15] VITALS: BP 118/59
[2017-07-14 06:09] LABS: BASOPHILS 0.3 % (0-2); EOSINOPHILS 0.5 % (0-7); HEMATOCRIT 32.4 % (36.0-48.0); HEMOGLOBIN 10.7 g/dL (12-16); IMMATURE GRANULOCYTES 0.4 % (0-5); LYMPHOCYTES 29.6 % (15-50); MCH 29.2 pg (26.0-34.0); MCV 88.3 fL (80.0-100.0); MEAN PLATELET VOLUME 10.3 fL (7.4-10.4); MONOCYTES 8.9 % (2-11); NEUTROPHILS 60.3 % (40-80); PLATELET COUNT 176 10x3/uL (130-400); RBC 3.67 10x6/uL (4.00-5.40); RDW 17.7 % (11.5-14.5); WBC 14.8 10x3/uL (4.8-10.8)
[2017-07-14 06:26] LABS: CALC OSMOLALITY 259 mosm/kg (275-300); CALCIUM 7.7 mg/dL (8.5-10.1); CARBON DIOXIDE 24.1 mmol/L (21.0-32.0); CHLORIDE - SERUM 100 mmol/L (98-107); CREATININE - SERUM 0.6 mg/dL (0.6-1.3); GLUCOSE 104 mg/dL (74-106); POTASSIUM - SERUM 3.3 mmol/L (3.5-5.1); SODIUM 131 mmol/L (136-145); UREA NITROGEN 5 mg/dL (7-18); eGFR NON AFRICAN AMERICAN > 90 mL/min (90-120)
[2017-07-14 08:00] VITALS: BP 99/60
[2017-07-14 21:30] VITALS: BP 114/50
[2017-07-15 08:36] VITALS: BP 120/63
[2017-07-15 20:00] VITALS: BP 103/53
[2017-07-16 07:35] LABS: BASOPHILS 0.2 % (0-2); EOSINOPHILS 0.5 % (0-7); HEMATOCRIT 32.1 % (36.0-48.0); HEMOGLOBIN 10.9 g/dL (12-16); IMMATURE GRANULOCYTES 0.2 % (0-5); LYMPHOCYTES 22.4 % (15-50); MCH 29.5 pg (26.0-34.0); MCV 86.8 fL (80.0-100.0); MEAN PLATELET VOLUME 10.9 fL (7.4-10.4); MONOCYTES 9.8 % (2-11); NEUTROPHILS 66.9 % (40-80); PLATELET COUNT 178 10x3/uL (130-400); RDW 17.6 % (11.5-14.5)
[2017-07-16 07:53] LABS: CALC OSMOLALITY 265 mosm/kg (275-300); CALCIUM 7.7 mg/dL (8.5-10.1); CARBON DIOXIDE 23.9 mmol/L (21.0-32.0); CHLORIDE - SERUM 101 mmol/L (98-107); CREATININE - SERUM 0.6 mg/dL (0.6-1.3); GLUCOSE 104 mg/dL (74-106); SODIUM 134 mmol/L (136-145); UREA NITROGEN 6 mg/dL (7-18); eGFR NON AFRICAN AMERICAN > 90 mL/min (90-120)
[2017-07-16 09:29] VITALS: BP 111/59
[2017-07-16 19:05] VITALS: BP 116/53
[2017-07-17 06:58] VITALS: BP 118/56
[2017-07-17 19:00] VITALS: BP 107/50
[2017-07-18 06:25] LABS: BASOPHILS 0.2 % (0-2); EOSINOPHILS 0.7 % (0-7); HEMATOCRIT 31.5 % (36.0-48.0); HEMOGLOBIN 10.6 g/dL (12-16); IMMATURE GRANULOCYTES 0.3 % (0-5); LYMPHOCYTES 27.6 % (15-50); MCH 29.4 pg (26.0-34.0); MCHC 33.7 g/dL (31.0-37.0); MCV 87.3 fL (80.0-100.0); MEAN PLATELET VOLUME 10.7 fL (7.4-10.4); MONOCYTES 11.1 % (2-11); NEUTROPHILS 60.1 % (40-80); PLATELET COUNT 148 10x3/uL (130-400); RBC 3.61 10x6/uL (4.00-5.40); RDW 17.5 % (11.5-14.5); WBC 12.6 10x3/uL (4.8-10.8)
[2017-07-18 07:03] LABS: CALC OSMOLALITY 264 mosm/kg (275-300); CALCIUM 7.4 mg/dL (8.5-10.1); CARBON DIOXIDE 22.5 mmol/L (21.0-32.0); CHLORIDE - SERUM 101 mmol/L (98-107); CREATININE - SERUM 0.6 mg/dL (0.6-1.3); GLUCOSE 96 mg/dL (74-106); POTASSIUM - SERUM 3.4 mmol/L (3.5-5.1); SODIUM 134 mmol/L (136-145); UREA NITROGEN 5 mg/dL (7-18); eGFR NON AFRICAN AMERICAN > 90 mL/min (90-120)
[2017-07-18 08:14] VITALS: BP 121/52
[2017-07-18 22:15] VITALS: BP 115/50
[2017-07-19 07:11] VITALS: BP 108/59
[2017-07-19 22:10] VITALS: BP 109/61
[2017-07-20 08:00] VITALS: BP 110/61
[2017-07-20 21:10] VITALS: BP 104/53
[2017-07-21 05:58] LABS: BASOPHILS 0.2 % (0-2); EOSINOPHILS 0.4 % (0-7); HEMATOCRIT 35.6 % (36.0-48.0); HEMOGLOBIN 11.8 g/dL (12-16); IMMATURE GRANULOCYTES 0.2 % (0-5); LYMPHOCYTES 27.6 % (15-50); MCH 29.2 pg (26.0-34.0); MCHC 33.1 g/dL (31.0-37.0); MCV 88.1 fL (80.0-100.0); MEAN PLATELET VOLUME 11.3 fL (7.4-10.4); MONOCYTES 11.6 % (2-11); PLATELET COUNT 186 10x3/uL (130-400); RBC 4.04 10x6/uL (4.00-5.40); RDW 17.7 % (11.5-14.5)
[2017-07-21 06:09] LABS: CALC OSMOLALITY 265 mosm/kg (275-300); CALCIUM 7.7 mg/dL (8.5-10.1); CARBON DIOXIDE 23.6 mmol/L (21.0-32.0); CHLORIDE - SERUM 103 mmol/L (98-107); CREATININE - SERUM 0.7 mg/dL (0.6-1.3); GLUCOSE 92 mg/dL (74-106); POTASSIUM - SERUM 4.6 mmol/L (3.5-5.1); SODIUM 134 mmol/L (136-145); UREA NITROGEN 6 mg/dL (7-18); eGFR NON AFRICAN AMERICAN 88 mL/min (90-120)
[2017-07-21 08:26] VITALS: BP 124/62
[2017-07-21 19:45] VITALS: BP 117/63
[2017-07-22 08:04] VITALS: BP 107/59
[2017-07-22 20:00] VITALS: BP 119/60
[2017-07-23 06:43] LABS: CALC OSMOLALITY 260 mosm/kg (275-300); CALCIUM 7.5 mg/dL (8.5-10.1); CARBON DIOXIDE 24.7 mmol/L (21.0-32.0); CHLORIDE - SERUM 101 mmol/L (98-107); CREATININE - SERUM 0.6 mg/dL (0.6-1.3); GLUCOSE 92 mg/dL (74-106); POTASSIUM - SERUM 4.3 mmol/L (3.5-5.1); SODIUM 131 mmol/L (136-145); UREA NITROGEN 7 mg/dL (7-18); eGFR NON AFRICAN AMERICAN > 90 mL/min (90-120)
[2017-07-23 06:45] LABS: BASOPHILS 0.2 % (0-2); EOSINOPHILS 0.7 % (0-7); HEMATOCRIT 32.5 % (36.0-48.0); HEMOGLOBIN 10.9 g/dL (12-16); IMMATURE GRANULOCYTES 0.4 % (0-5); LYMPHOCYTES 32.4 % (15-50); MCH 29.5 pg (26.0-34.0); MCHC 33.5 g/dL (31.0-37.0); MCV 87.8 fL (80.0-100.0); MEAN PLATELET VOLUME 11.1 fL (7.4-10.4); MONOCYTES 8.8 % (2-11); NEUTROPHILS 57.5 % (40-80); PLATELET COUNT 191 10x3/uL (130-400); RDW 17.5 % (11.5-14.5); WBC 13.3 10x3/uL (4.8-10.8)
[2017-07-23] MEDS ORDERED: ZOLOFT50 MG PO (08:17)
[2017-07-23] MEDS ORDERED: K-DUR20 MEQ PO (08:17)
[2017-07-23] MEDS ORDERED: LASIX40 MG PO (08:17)
[2017-07-23 11:13] VITALS: BP 106/55
== END 2017-07-23 18:06 | disposition home health service (06) | DRG 91 ==
LOC: D.REHAB 18:41
PROVIDERS: Emergency Medicine; Family Medicine
DX: G72.81 Critical illness myopathy (principal); J96.01 Acute respiratory failure with hypoxia; A41.9 Sepsis, unspecified organism; R65.21 Severe sepsis with septic shock; G93.41 Metabolic encephalopathy; J90 Pleural effusion, not elsewhere classified; C18.9 Malignant neoplasm of colon, unspecified; J81.1 Chronic pulmonary edema; J44.9 Chronic obstructive pulmonary disease, unspecified; M06.9 Rheumatoid arthritis, unspecified

== ENCOUNTER 2017-10-04 12:26 | Inpatient (IN) | payer MEDICARE ==
[~2017-10-04] VITALS: Ht 175.3 cm; Wt 77.6 kg
[~2017-10-04 12:26] MED LIST changes: +K-DUR20 MEQ PO; +PEPCID20 MG PO; +PROTONIX40 MG PO; +ZOLOFT50 MG PO
[2017-10-04] MEDS ORDERED: BUMEX 1 MG TAB1 MG PO (13:00)
[2017-10-04] MEDS ORDERED: ZOLOFT25 MG PO (13:01)
[2017-10-04] MEDS ORDERED: MAG-OXIDE400 MG PO (13:01)
[2017-10-04] MEDS ORDERED: KLOR-CON 1010 MEQ PO (13:01)
[2017-10-04 13:41] LABS: APPEARANCE CLEAR (CLEAR); BILIRUBIN NEGATIVE (NEGATIVE); COLOR YELLOW (YELLOW); GLUCOSE NEGATIVE (NEGATIVE); KETONE NEGATIVE (NEGATIVE); NITRITE NEGATIVE (NEGATIVE); PROTEIN NEGATIVE (NEGATIVE); UROBILINOGEN NORMAL (NORMAL)
[2017-10-04 13:42] LABS: BACTERIA MODERATE /hpf (NONE SEEN); EPITHELIAL CELLS 0-5 /hpf (0-5); RED CELLS - URINE 0-5 /hpf (0-5)
[2017-10-04 13:43] LABS: BASOPHILS 0.4 % (0-2); EOSINOPHILS 0.8 % (0-7); HEMOGLOBIN 10.9 g/dL (12-16); IMMATURE GRANULOCYTES 0.2 % (0-5); MCH 29.5 pg (26.0-34.0); MCHC 35.2 g/dL (31.0-37.0); MCV 83.8 fL (80.0-100.0); MEAN PLATELET VOLUME 10.6 fL (7.4-10.4); MONOCYTES 13.9 % (2-11); NEUTROPHILS 55.7 % (40-80); PLATELET COUNT 171 10x3/uL (130-400); WBC 16.2 10x3/uL (4.8-10.8)
[2017-10-04 14:08] LABS: ALBUMIN 1.4 g/dL (3.4-5.0); ALKALINE PHOSPHATASE 124 U/L (46-116); ALT (SGPT) 17 U/L (10-68); BILIRUBIN - TOTAL 2.16 mg/dL (0.2-1.3); CALC OSMOLALITY 273 mosm/kg (275-300); CALCIUM 7.5 mg/dL (8.5-10.1); CARBON DIOXIDE 37.6 mmol/L (21.0-32.0); CHLORIDE - SERUM 99 mmol/L (98-107); CREATININE - SERUM 0.9 mg/dL (0.6-1.3); GLUCOSE 120 mg/dL (74-106); PROTEIN - SERUM 6.8 g/dL (6.4-8.2); SODIUM 137 mmol/L (136-145); THYROID STIMULATING HORMONE 3.67 uIU/mL (0.36-3.74); UREA NITROGEN 10 mg/dL (7-18); eGFR NON AFRICAN AMERICAN 66 mL/min (90-120)
[2017-10-04 14:14] LABS: POTASSIUM - SERUM 2.3 mmol/L (3.5-5.1); TROPONIN-I < 0.017 ng/mL (0.000-0.060)
[2017-10-04 14:49] VITALS: BP 118/58
[2017-10-04] MEDS ORDERED: ULTRAM50 MG PO (15:58)
[2017-10-04 16:25] VITALS: BP 111/59; BMI 25.3
[2017-10-04 21:08] VITALS: BP 108/52
[2017-10-05 01:08] VITALS: BP 104/59
[2017-10-05 04:45] VITALS: BP 129/61
[2017-10-05 05:37] LABS: BASOPHILS 0.4 % (0-2); EOSINOPHILS 1.9 % (0-7); HEMATOCRIT 32.3 % (36.0-48.0); HEMOGLOBIN 11.1 g/dL (12-16); IMMATURE GRANULOCYTES 0.2 % (0-5); LYMPHOCYTES 31.9 % (15-50); MCH 28.8 pg (26.0-34.0); MCHC 34.4 g/dL (31.0-37.0); MCV 83.9 fL (80.0-100.0); MEAN PLATELET VOLUME 11.7 fL (7.4-10.4); MONOCYTES 13.7 % (2-11); NEUTROPHILS 51.9 % (40-80); PLATELET COUNT 184 10x3/uL (130-400); RBC 3.85 10x6/uL (4.00-5.40); WBC 14.3 10x3/uL (4.8-10.8)
[2017-10-05 06:03] LABS: ALBUMIN 1.3 g/dL (3.4-5.0); ALKALINE PHOSPHATASE 119 U/L (46-116); ALT (SGPT) 15 U/L (10-68); BILIRUBIN - TOTAL 2.14 mg/dL (0.2-1.3); CALC OSMOLALITY 272 mosm/kg (275-300); CALCIUM 7.6 mg/dL (8.5-10.1); CHLORIDE - SERUM 98 mmol/L (98-107); CREATININE - SERUM 0.8 mg/dL (0.6-1.3); GLUCOSE 105 mg/dL (74-106); MAGNESIUM - SERUM 1.3 mg/dL (1.8-2.4); PHOSPHOROUS 2.4 mg/dL (2.5-4.9); PROTEIN - SERUM 6.7 g/dL (6.4-8.2); SODIUM 137 mmol/L (136-145); UREA NITROGEN 9 mg/dL (7-18); eGFR NON AFRICAN AMERICAN 75 mL/min (90-120)
[2017-10-05 06:09] LABS: POTASSIUM - SERUM 2.4 mmol/L (3.5-5.1)
[2017-10-05 08:00] VITALS: BP 112/59
[2017-10-05 12:15] VITALS: BP 100/52
[2017-10-05 16:00] VITALS: BP 104/55
[2017-10-05 18:33] LABS: MAGNESIUM - SERUM 1.2 mg/dL (1.8-2.4); PHOSPHOROUS 1.8 mg/dL (2.5-4.9)
[2017-10-05 18:42] LABS: POTASSIUM - SERUM 3.1 mmol/L (3.5-5.1)
[2017-10-05 20:46] VITALS: BP 106/46
[2017-10-06 04:22] LABS: BASOPHILS 0.6 % (0-2); EOSINOPHILS 3.7 % (0-7); HEMATOCRIT 30.8 % (36.0-48.0); HEMOGLOBIN 10.6 g/dL (12-16); IMMATURE GRANULOCYTES 0.2 % (0-5); LYMPHOCYTES 19.1 % (15-50); MCHC 34.4 g/dL (31.0-37.0); MCV 84.2 fL (80.0-100.0); MEAN PLATELET VOLUME 10.9 fL (7.4-10.4); MONOCYTES 14.5 % (2-11); NEUTROPHILS 61.9 % (40-80); PLATELET COUNT 176 10x3/uL (130-400); RBC 3.66 10x6/uL (4.00-5.40); RDW 16.8 % (11.5-14.5); WBC 16.5 10x3/uL (4.8-10.8)
[2017-10-06 04:42] LABS: ALBUMIN 1.1 g/dL (3.4-5.0); ALKALINE PHOSPHATASE 107 U/L (46-116); ALT (SGPT) 13 U/L (10-68); BILIRUBIN - TOTAL 1.87 mg/dL (0.2-1.3); CALC OSMOLALITY 270 mosm/kg (275-300); CALCIUM 7.5 mg/dL (8.5-10.1); CHLORIDE - SERUM 99 mmol/L (98-107); CREATININE - SERUM 0.8 mg/dL (0.6-1.3); GLUCOSE 117 mg/dL (74-106); MAGNESIUM - SERUM 1.2 mg/dL (1.8-2.4); PROTEIN - SERUM 6.2 g/dL (6.4-8.2); SODIUM 136 mmol/L (136-145); UREA NITROGEN 7 mg/dL (7-18); eGFR NON AFRICAN AMERICAN 75 mL/min (90-120)
[2017-10-06 04:58] LABS: PHOSPHOROUS 2.5 mg/dL (2.5-4.9)
[2017-10-06 05:03] VITALS: BP 96/54
[2017-10-06 07:43] VITALS: BP 103/60
[2017-10-06 11:09] VITALS: Ht 175.3 cm; Wt 77.6 kg
[2017-10-06 12:00] VITALS: BP 108/54
[2017-10-06 13:43] LABS: % SATURATION 51 % (15-55); IRON 41 ug/dl (35-150); TOTAL IRON BIND CAPACITY 79 ug/dl (260-445)
[2017-10-06 13:44] LABS: UNSAT IRON BIND CAPACITY 38 ug/dl (150-375)
[2017-10-06 16:00] VITALS: BP 101/53
[2017-10-06 20:43] VITALS: BP 129/84
[2017-10-06 23:44] VITALS: BP 102/46
[2017-10-07 04:22] VITALS: BP 105/46
[2017-10-07 05:26] LABS: BASOPHILS 0.7 % (0-2); EOSINOPHILS 5.2 % (0-7); HEMATOCRIT 31.1 % (36.0-48.0); HEMOGLOBIN 10.6 g/dL (12-16); IMMATURE GRANULOCYTES 0.3 % (0-5); LYMPHOCYTES 20.2 % (15-50); MCH 28.6 pg (26.0-34.0); MCHC 34.1 g/dL (31.0-37.0); MCV 84.1 fL (80.0-100.0); MEAN PLATELET VOLUME 11.3 fL (7.4-10.4); NEUTROPHILS 59.6 % (40-80); PLATELET COUNT 175 10x3/uL (130-400); RDW 16.7 % (11.5-14.5); WBC 16.4 10x3/uL (4.8-10.8)
[2017-10-07 05:50] LABS: ALBUMIN 1.2 g/dL (3.4-5.0); ALKALINE PHOSPHATASE 110 U/L (46-116); ALT (SGPT) 11 U/L (10-68); CALC OSMOLALITY 258 mosm/kg (275-300); CALCIUM 7.8 mg/dL (8.5-10.1); CARBON DIOXIDE 31.7 mmol/L (21.0-32.0); CHLORIDE - SERUM 98 mmol/L (98-107); CREATININE - SERUM 0.8 mg/dL (0.6-1.3); GLUCOSE 102 mg/dL (74-106); MAGNESIUM - SERUM 1.2 mg/dL (1.8-2.4); PHOSPHOROUS 2.8 mg/dL (2.5-4.9); POTASSIUM - SERUM 4.4 mmol/L (3.5-5.1); PROTEIN - SERUM 6.3 g/dL (6.4-8.2); SODIUM 130 mmol/L (136-145); UREA NITROGEN 6 mg/dL (7-18); eGFR NON AFRICAN AMERICAN 75 mL/min (90-120)
[2017-10-07 08:19] LABS: FOLATE (FOLIC ACID) - SERUM 3.2 ng/mL (>3.0)
[2017-10-07 08:30] VITALS: BP 99/49
[2017-10-07 12:44] VITALS: BP 103/51
[2017-10-07 15:49] VITALS: BP 103/48
[2017-10-07 20:00] VITALS: BP 98/51
[2017-10-08 00:41] VITALS: BP 107/51
[2017-10-08 04:00] VITALS: BP 117/51
[2017-10-08 06:18] LABS: BASOPHILS 0.5 % (0-2); EOSINOPHILS 5.7 % (0-7); HEMOGLOBIN 10.1 g/dL (12-16); IMMATURE GRANULOCYTES 0.3 % (0-5); LYMPHOCYTES 20.8 % (15-50); MCHC 34.8 g/dL (31.0-37.0); MCV 83.3 fL (80.0-100.0); MEAN PLATELET VOLUME 11.5 fL (7.4-10.4); MONOCYTES 14.8 % (2-11); NEUTROPHILS 57.9 % (40-80); PLATELET COUNT 194 10x3/uL (130-400); RBC 3.48 10x6/uL (4.00-5.40); RDW 16.7 % (11.5-14.5); WBC 15.4 10x3/uL (4.8-10.8)
[2017-10-08 07:06] LABS: ALBUMIN 1.1 g/dL (3.4-5.0); ALKALINE PHOSPHATASE 105 U/L (46-116); ALT (SGPT) 11 U/L (10-68); CALC OSMOLALITY 259 mosm/kg (275-300); CALCIUM 8.1 mg/dL (8.5-10.1); CARBON DIOXIDE 27.7 mmol/L (21.0-32.0); CHLORIDE - SERUM 99 mmol/L (98-107); CREATININE - SERUM 0.7 mg/dL (0.6-1.3); GLUCOSE 93 mg/dL (74-106); PHOSPHOROUS 2.7 mg/dL (2.5-4.9); POTASSIUM - SERUM 4.1 mmol/L (3.5-5.1); SODIUM 131 mmol/L (136-145); UREA NITROGEN 5 mg/dL (7-18); eGFR NON AFRICAN AMERICAN 88 mL/min (90-120)
[2017-10-08 07:41] VITALS: BP 106/53
[2017-10-08 12:30] VITALS: BP 111/56
[2017-10-08 15:45] VITALS: BP 97/48
[2017-10-08 20:01] VITALS: BP 107/54
[2017-10-09 04:35] VITALS: BP 107/50
[2017-10-09 05:24] LABS: BASOPHILS 0.7 % (0-2); EOSINOPHILS 7.4 % (0-7); HEMATOCRIT 29.5 % (36.0-48.0); HEMOGLOBIN 10.2 g/dL (12-16); IMMATURE GRANULOCYTES 0.2 % (0-5); LYMPHOCYTES 19.3 % (15-50); MCHC 34.6 g/dL (31.0-37.0); MCV 83.8 fL (80.0-100.0); MEAN PLATELET VOLUME 11.7 fL (7.4-10.4); MONOCYTES 14.7 % (2-11); NEUTROPHILS 57.7 % (40-80); PLATELET COUNT 195 10x3/uL (130-400); RBC 3.52 10x6/uL (4.00-5.40); RDW 16.6 % (11.5-14.5); WBC 13.2 10x3/uL (4.8-10.8)
[2017-10-09 05:51] LABS: ALBUMIN 1.1 g/dL (3.4-5.0); ALKALINE PHOSPHATASE 107 U/L (46-116); ALT (SGPT) 12 U/L (10-68); CALC OSMOLALITY 260 mosm/kg (275-300); CALCIUM 8.2 mg/dL (8.5-10.1); CARBON DIOXIDE 27.2 mmol/L (21.0-32.0); CHLORIDE - SERUM 100 mmol/L (98-107); CREATININE - SERUM 0.7 mg/dL (0.6-1.3); GLUCOSE 113 mg/dL (74-106); MAGNESIUM - SERUM 1.7 mg/dL (1.8-2.4); PHOSPHOROUS 2.6 mg/dL (2.5-4.9); POTASSIUM - SERUM 4.3 mmol/L (3.5-5.1); SODIUM 131 mmol/L (136-145); UREA NITROGEN 5 mg/dL (7-18); eGFR NON AFRICAN AMERICAN 88 mL/min (90-120)
[2017-10-09 06:10] LABS: PROTEIN - SERUM 6.2 g/dL (6.4-8.2)
[2017-10-09 08:14] VITALS: BP 112/55
[2017-10-09 13:15] VITALS: BP 118/55
[2017-10-09 16:16] VITALS: BP 101/50
[2017-10-09 20:32] VITALS: BP 116/52
[2017-10-10 04:16] VITALS: BP 104/50
[2017-10-10 08:07] VITALS: BP 105/52
[2017-10-10 11:26] VITALS: BP 92/53
[2017-10-10 15:30] VITALS: BP 100/46
[2017-10-10 19:51] VITALS: BP 119/48
[2017-10-11 04:11] VITALS: BP 126/63
[2017-10-11 07:53] VITALS: BP 107/53
[2017-10-11 12:28] VITALS: BP 107/46
[2017-10-11 16:00] VITALS: BP 114/51
[2017-10-11 20:55] VITALS: BP 124/52
[2017-10-12 05:04] VITALS: BP 114/46
[2017-10-12 08:04] VITALS: BP 101/54
[2017-10-12 10:07] LABS: CHOLIC ACID 3.9 umol/L (()); DEOXYCHOLIC ACID 1.8 umol/L (()); URSODEOXYCHOLIC ACID 1.5 umol/L (())
[2017-10-12 12:34] VITALS: BP 105/53
[2017-10-12 16:03] VITALS: BP 119/57
[2017-10-12 21:46] VITALS: BP 118/49
[2017-10-13 00:38] VITALS: BP 105/50
[2017-10-13 04:35] VITALS: BP 126/57
[2017-10-13 05:02] LABS: BASOPHILS 0.6 % (0-2); EOSINOPHILS 4.1 % (0-7); HEMATOCRIT 28.7 % (36.0-48.0); IMMATURE GRANULOCYTES 0.7 % (0-5); LYMPHOCYTES 27.3 % (15-50); MCH 29.2 pg (26.0-34.0); MCHC 34.8 g/dL (31.0-37.0); MCV 83.7 fL (80.0-100.0); MONOCYTES 11.5 % (2-11); NEUTROPHILS 55.8 % (40-80); PLATELET COUNT 229 10x3/uL (130-400); RBC 3.43 10x6/uL (4.00-5.40); RDW 17.4 % (11.5-14.5)
[2017-10-13 05:19] LABS: CALC OSMOLALITY 265 mosm/kg (275-300); CALCIUM 8.4 mg/dL (8.5-10.1); CARBON DIOXIDE 25.4 mmol/L (21.0-32.0); CHLORIDE - SERUM 101 mmol/L (98-107); CREATININE - SERUM 0.6 mg/dL (0.6-1.3); GLUCOSE 95 mg/dL (74-106); SODIUM 134 mmol/L (136-145); UREA NITROGEN 6 mg/dL (7-18); eGFR NON AFRICAN AMERICAN > 90 mL/min (90-120)
[2017-10-13 05:25] LABS: POTASSIUM - SERUM 2.9 mmol/L (3.5-5.1)
[2017-10-13 07:45] VITALS: BP 115/62
[2017-10-13 09:20] LABS: MAGNESIUM - SERUM 1.8 mg/dL (1.8-2.4); PHOSPHOROUS 2.3 mg/dL (2.5-4.9)
[2017-10-13] MEDS ORDERED: MACROBID100 MG PO (10:36)
[2017-10-13] MEDS ORDERED: IPRAT-ALBUT 0.5-3 ML UPD (10:36)
[2017-10-13] MEDS ORDERED: ALBUMINAR-25100 ML IV (10:36)
[2017-10-13] MEDS ORDERED: LOVENOX80 MG/0.8 SC (10:36)
[2017-10-13] MEDS ORDERED: LASIX40 MG PO (10:37)
[2017-10-13] MEDS ORDERED: SLOMAG PO (10:37)
[2017-10-13] MEDS ORDERED: MAG DELAY PO (10:37)
[2017-10-13] MEDS ORDERED: MEGACE400 MG/10 PO (10:38)
[2017-10-13] MEDS ORDERED: PROCALAMINE I1000 ML IV (10:39)
[2017-10-13] MEDS ORDERED: KLOR-CON20 MEQ/PKT PO (10:39)
[2017-10-13 12:00] VITALS: BP 118/62
[2017-10-13 15:33] VITALS: BP 127/57
== END 2017-10-13 17:07 | DRG 871 ==
LOC: D.ER 12:26 → D.MS 14:33 → D.EDHOLD 14:33 → D.MS 15:20
PROVIDERS: Emergency Medicine; Family Medicine; Internal Medicine Nephrology
DX: A41.50 Gram-negative sepsis, unspecified (principal); E43 Unspecified severe protein-calorie malnutrition; N39.0 Urinary tract infection, site not specified; I82.402 Acute embolism and thrombosis of unspecified deep veins of left lower extremity; K76.6 Portal hypertension; Z68.25 Body mass index [BMI] 25.0-25.9, adult; K74.60 Unspecified cirrhosis of liver; E83.42 Hypomagnesemia; E87.6 Hypokalemia; E83.39 Other disorders of phosphorus metabolism; D50.9 Iron deficiency anemia, unspecified; E83.51 Hypocalcemia; G72.9 Myopathy, unspecified; F32.9 Major depressive disorder, single episode, unspecified; M06.9 Rheumatoid arthritis, unspecified; R42 Dizziness and giddiness

== ENCOUNTER 2017-10-13 18:25 | Inpatient (IN) | payer MEDICARE ==
[~2017-10-13] VITALS: Ht 175.3 cm; Wt 77.8 kg
--- NOTE | ~2017-10-13 | RHP ---
PATIENT: SABAS JUÁREZ MEDICAL RECORD: [id number] ACCOUNT: [id number] LOCATION:[facility] : 48 ADMISSION DATE: 10/13/17 REHABILITATION HISTORY AND PHYSICAL EXAMINATION POST ADMISSION PHYSICIAN EXAMINATION DATE OF ADMISSION: 10/13/2017 ADMITTING DIAGNOSIS: Disuse myopathy. HISTORY OF PRESENT ILLNESS: The patient is a 67-year-old white female, patient of Dr. Rousseau, who was admitted to the acute rehab unit with a working diagnosis of disuse myopathy. She has had several surgeries this year to include appendectomy, liver biopsy, splenectomy and partial colectomy, been followed by house calls and home health ever since. Her home health calls Dr. Rousseau saying that she was unable to draw her blood after 2 attempts. Potassium level had been 2.1 three days prior. She had 40 mEq 2 days ago followed by 20 mEq on ____. She has not been eating well. She has been too weak to walk downstairs to go have her blood drawn as an outpatient. Home health nurse called Dr. Rousseau, who instructed her to call the ambulance and have them bring her to the Emergency Room. She spent some time in inpatient rehab in June for critical illness myopathy and was discharged home where she lives with her son in a modified independent level of functioning. She has a past medical history of rheumatoid arthritis, cirrhosis, blood clots and bronchitis. She was in the ED with increasing weakness, malaise, poor appetite, and lethargy. She was admitted with hypokalemia. She was diagnosed with gram-negative rods in her urine, hypocalcemia, hypomagnesemia, and hypophosphatemia. She has had a prolonged hospitalization and immobility affecting her tolerance to PT. She developed lower extremity pain and edema since her admit. Bilateral lower extremity ultrasound showed occlusive DVT in the right lower leg. She was only consuming about 5% of her meals and after a calorie count, was placed on procalamine at 75 mL per hour for severe protein-calorie malnutrition. She is currently on O2 at 4 liters, max assist with ambulation, only supine to sit stand. She is [id number] assist for ADLs and requiring speech therapy for oral dysphagia to assist with swallowing, safety dietary tolerance and communication. She required inpatient therapies, PT, speech therapy and occupational therapy as well as medical management and able to return back to her prior level of functioning and return home. COMORBIDITIES: In this patient include dysphagia, acute Gram-negative sepsis, CHF, leukocytosis, anemia, right leg occlusive DVT, bilateral pleural effusion, cirrhosis, rheumatoid arthritis, hypocalcemia, malignant neoplasm of the colon, portal hypertension, UTI, hypophosphatemia, hypomagnesemia, acute myopathy, severe protein-calorie malnutrition, anorexia, deconditioning and malaise. PAST MEDICAL HISTORY: Significant for weakness. She has had cirrhosis, blood clots in her heart, bronchitis. PAST SURGICAL HISTORY: Gallbladder surgery, appendectomy, tonsillectomy, adenoidectomy, hysterectomy, left breast lumpectomy. ALLERGIES: PENICILLIN, SULFA, TRAMADOL, MORPHINE AND NITROGLYCERIN. CURRENT MEDICATIONS: She is on an electrolyte protocol at this time. She is on [place] 5/325 one tab every 4 hours p.r.n., Macrobid 100 mg b.i.d. with meals, HISTORY AND PHYSICAL [id number] SABAS JUÁREZ Zoloft 25 mg daily, Protonix 40 mg b.i.d., ____ 460 mg daily, Flonase nasal spray 2 sprays daily. She is on sodium chloride nasal spray 1 spray four times a day, Slow-Mag 64 mg b.i.d., Senokot 1 tab b.i.d., potassium chloride 20 mEq four times a day, Megace 400 mg b.i.d., Mag-Ox 400 mg b.i.d., DuoNeb updrafts 3 cc four times a day, furosemide 80 mg b.i.d., Pepcid 20 mg b.i.d., Lovenox 80 mg subQ b.i.d. and albumin solution 25 g every 12 hours IV. HABITS: No current alcohol or tobacco use. FAMILY HISTORY: Noncontributory. SOCIAL HISTORY: The patient hopes to return back home and get back to her prior level of functioning. REVIEW OF SYSTEMS: GENERAL: Does complain of weakness. HEENT: She denies cold, cough, or congestion. CARDIOVASCULAR: Denies chest pain. PHYSICAL EXAMINATION: VITAL SIGNS: Stable, afebrile. GENERAL: A well-developed female in no acute distress, alert upon exam. HEENT: Normocephalic and atraumatic. Mucosa moist. NECK: Supple. No lymphadenopathy. LUNGS: Clear at this time. HEART: Regular rate and rhythm. ABDOMEN: Benign. EXTREMITIES: No clubbing, cyanosis or edema. NEUROLOGIC: She does have noted weakness. LABORATORY DATA: Her white count is 14.6, H&H of 9.6 and 27.9, platelet count is 247. Sodium is 135, potassium 4.1, BUN and creatinine of 6 and 0.5 and blood sugar is noted to be 79. ASSESSMENT: This 67-year-old female patient admitted to rehab with a working diagnosis of disuse myopathy. The patient has potential to make improvement. We instituted the following multidisciplinary therapies including, but not limited to physical, occupational, respiratory, speech, nutritional services, prosthetics and orthotics. Given her complex medical condition and risks for more complications, rehabilitation services cannot be provided at a low level of care such as skilled nurse facility. PLAN: 1. Admit to [facility] for intensive inpatient therapy to include the following disciplines: A. Physical therapy to improve gait, all transfer skills and bed mobility to a modified independent level. B. Occupational therapy to improve activities of daily living to a modified independent level. C. Case management to assist with discharge planning and placement options. D. Nutrition to assist with nutritional needs. E. Rehabilitation nursing to assist in monitoring the patient's underlying medical conditions and to assist with any type of bowel or bladder management. 2. The patient's current medication and medical care will be continued. 3. The patient will be placed on standard fall precautions. HISTORY AND PHYSICAL [id number] SABAS JUÁREZ 4. The patient's estimated length of stay is approximately 7-10 days. 5. We will discuss this patient during care team staff meeting this week. TRANSINT:[id number] Voice Confirmation ID: [id number] DOCUMENT ID: [id number] TRACY notes whether there has been none or any medical/functional change since admission: - No change since prescreen. TRACY attests patient continues to be appropriate for IRF: - Continues to be appropriate. PATRICE MALLORY MD at 2041 CC: [id number] DICTATION DATE: 10/14/17 0934 EXPERIMENTAL FLIGHT TEST MECHANIC: 10/14/17 1101 DIS IN 10/15/17 [facility] [address] [place] [address]
[~2017-10-13 18:25] MED LIST changes: +ALBUMINAR-25100 ML IV; +BUMEX 1 MG TAB1 MG PO; +IPRAT-ALBUT 0.5-3 ML UPD; +KLOR-CON 1010 MEQ PO; +KLOR-CON20 MEQ/PKT PO; +LOVENOX80 MG/0.8 SC; +MACROBID100 MG PO; +MAG DELAY PO; +MAG-OXIDE400 MG PO; +MEGACE400 MG/10 PO; +PROCALAMINE I1000 ML IV; +SLOMAG PO; +ULTRAM50 MG PO; +ZOLOFT25 MG PO
[2017-10-13 22:48] VITALS: BP 122/64; BMI 25.3
[2017-10-14 00:41] VITALS: BP 125/61
[2017-10-14 06:12] LABS: CALC OSMOLALITY 266 mosm/kg (275-300); CARBON DIOXIDE 26.4 mmol/L (21.0-32.0); CHLORIDE - SERUM 102 mmol/L (98-107); CREATININE - SERUM 0.5 mg/dL (0.6-1.3); GLUCOSE 79 mg/dL (74-106); SODIUM 135 mmol/L (136-145); UREA NITROGEN 6 mg/dL (7-18); eGFR NON AFRICAN AMERICAN > 90 mL/min (90-120)
[2017-10-14 06:18] LABS: POTASSIUM - SERUM 4.1 mmol/L (3.5-5.1)
[2017-10-14 06:39] VITALS: BP 134/60
[2017-10-14 07:03] LABS: BASOPHILS 0.5 % (0-2); EOSINOPHILS 4.9 % (0-7); HEMATOCRIT 27.9 % (36.0-48.0); HEMOGLOBIN 9.6 g/dL (12-16); IMMATURE GRANULOCYTES 0.3 % (0-5); LYMPHOCYTES 19.2 % (15-50); MCH 29.2 pg (26.0-34.0); MCHC 34.4 g/dL (31.0-37.0); MCV 84.8 fL (80.0-100.0); MEAN PLATELET VOLUME 11.4 fL (7.4-10.4); MONOCYTES 12.2 % (2-11); NEUTROPHILS 62.9 % (40-80); PLATELET COUNT 247 10x3/uL (130-400); RBC 3.29 10x6/uL (4.00-5.40); RDW 18.1 % (11.5-14.5); WBC 14.6 10x3/uL (4.8-10.8)
[2017-10-14 08:00] VITALS: BP 124/65
[2017-10-14 13:10] VITALS: Ht 175.3 cm; Wt 77.8 kg
[2017-10-14 19:00] VITALS: BP 163/73
[2017-10-15 07:57] LABS: BASOPHILS 0.5 % (0-2); EOSINOPHILS 3.8 % (0-7); HEMATOCRIT 29.4 % (36.0-48.0); HEMOGLOBIN 10.2 g/dL (12-16); IMMATURE GRANULOCYTES 0.4 % (0-5); LYMPHOCYTES 26.4 % (15-50); MCH 29.7 pg (26.0-34.0); MCHC 34.7 g/dL (31.0-37.0); MCV 85.7 fL (80.0-100.0); MEAN PLATELET VOLUME 10.6 fL (7.4-10.4); MONOCYTES 9.3 % (2-11); NEUTROPHILS 59.6 % (40-80); PLATELET COUNT 219 10x3/uL (130-400); RBC 3.43 10x6/uL (4.00-5.40); RDW 18.5 % (11.5-14.5); WBC 16.4 10x3/uL (4.8-10.8)
[2017-10-15 08:00] VITALS: BP 137/66
[2017-10-15 08:03] LABS: CALC OSMOLALITY 267 mosm/kg (275-300); CALCIUM 9.1 mg/dL (8.5-10.1); CARBON DIOXIDE 27.4 mmol/L (21.0-32.0); CHLORIDE - SERUM 102 mmol/L (98-107); CREATININE - SERUM 0.6 mg/dL (0.6-1.3); GLUCOSE 97 mg/dL (74-106); POTASSIUM - SERUM 3.7 mmol/L (3.5-5.1); SODIUM 135 mmol/L (136-145); UREA NITROGEN 6 mg/dL (7-18); eGFR NON AFRICAN AMERICAN > 90 mL/min (90-120)
[2017-10-15] MEDS ORDERED: MACROBID100 MG PO (20:57)
== END 2017-10-15 18:36 | disposition short-term general hospital (02) | DRG 91 ==
LOC: D.REHAB 18:25
PROVIDERS: Emergency Medicine
DX: G72.89 Other specified myopathies (principal); E43 Unspecified severe protein-calorie malnutrition; A41.50 Gram-negative sepsis, unspecified; I82.401 Acute embolism and thrombosis of unspecified deep veins of right lower extremity; R13.11 Dysphagia, oral phase; J90 Pleural effusion, not elsewhere classified; C18.9 Malignant neoplasm of colon, unspecified; K76.6 Portal hypertension; N39.0 Urinary tract infection, site not specified; Z68.25 Body mass index [BMI] 25.0-25.9, adult; I50.9 Heart failure, unspecified; D72.829 Elevated white blood cell count, unspecified; D64.9 Anemia, unspecified; K74.60 Unspecified cirrhosis of liver; M06.9 Rheumatoid arthritis, unspecified; E83.51 Hypocalcemia; E83.39 Other disorders of phosphorus metabolism; E83.42 Hypomagnesemia

== ENCOUNTER 2017-10-15 19:13 | Inpatient (IN) | payer MEDICARE ==
[~2017-10-15] VITALS: Ht 175.3 cm; Wt 94.7 kg
--- NOTE | ~2017-10-15 | CN ---
PATIENT NAME:SABAS MARTINEZ MEDICAL RECORD: [id number] : 48 LOCATION:[facility].2304 ADMIT DATE: 10/15/17 ACCOUNT: [id number] CONSULTING PHYSICIAN: JEOVANNY CARTY MD REFERRING PHYSICIAN: PATRICE MALLORY MD DATE OF CONSULTATION: 10/16/2017 CONSULT REQUESTING PHYSICIAN: Deshawn Govea MD REASON FOR CONSULTATION: Acute hypoxic respiratory failure, acute mental status changes. HISTORY OF PRESENT ILLNESS: Ms. Martinez is a 67-year-old female. A rapid response was called on her yesterday. She was hypoxic and dyspneic. The patient has mental status changes. The history was mainly taken by talking to the nursing staff and reviewing the patient's note. REVIEW OF SYSTEMS: Mainly in the history of present illness. The detail is not obtainable. PAST MEDICAL HISTORY: 1. History of cerebrovascular accident, stroke. 2. Cirrhosis of liver. 3. History of blood clot in the ventricles. 4. History of rheumatoid arthritis. PAST SURGICAL HISTORY: 1. She has a laparotomy and splenectomy and liver biopsy. 2. Subtotal colectomy. 3. Appendectomy. 4. Hysterectomy. 5. Left breast lumpectomy. ALLERGIES: SHE IS ALLERGIC TO PENICILLIN, SULFA, MORPHINE AND NITROGLYCERIN. MEDICATIONS: On [employer] is reviewed. PERSONAL AND SOCIAL HISTORY: The patient is an ex-smoker. She is a nondrinker. FAMILY HISTORY: Noncontributory. PHYSICAL EXAMINATION: GENERAL: Now, the patient is lying comfortably. She is on BiPAP. She is sleepy, but she is arousable. VITAL SIGNS: The blood pressure is 133/96, pulse is 116, respiration is 29, temperature 97.9, SPO2 is 92% on BiPAP 50% oxygen. HEENT: Conjunctivae are pink. Sclerae are not icteric. NECK: Supple, no JVD. CHEST: There are bilateral crackles. No wheezing. HEART: Rhythm regular, normal sound, no murmur. ABDOMEN: Soft, bowel sounds present. No hepatosplenomegaly. RECTAL: Deferred. EXTREMITIES: No cyanosis, no clubbing, no pedal edema. SKIN: Warm, normal turgor. CENTRAL NERVOUS SYSTEM: The patient is sleepy, but she is very lethargic. CONSULT REPORT [id number] SABAS MARTINEZ IMAGING: Chest radiograph: There is bilateral increased interstitial marking consistent with pulmonary edema and there is possible multilobar pneumonia. OTHER LABORATORY DATA: CBC: WBC is 18.6, hemoglobin 9.4, hematocrit 28.1, the platelet count 252. Chemistry: Sodium is 137, potassium is 4.1, BUN is 6, creatinine is 0.6. IMPRESSION: 1. Riczj-rn-epleito hypoxic respiratory failure. 2. Pulmonary edema. 3. Congestive heart failure, possible systolic dysfunction. 4. Multilobar pneumonia consistent with hospital-acquired pneumonia. 5. Elevated cardiac enzymes and non-Q-wave myocardial infarction. 6. Cirrhosis of liver. 7. Leukocytosis. 8. Acute mental status changes secondary to hepatic encephalopathy and hyperammonemia. RECOMMENDATION: 1. Cefepime, Levaquin, and vancomycin IV to cover for hospital-acquired pneumonia. 2. Lasix. 3. Lactulose. 4. NG tube and start tube feeding. 5. Keep the sedation to a minimum. 6. BiPAP nasal cannula oxygen as required. 7. Follow up labs and chest radiograph. Critical care time [address] Govea, thank you for involving me in the care of Ms. Martinez. TRANSINT:[id number] Voice Confirmation ID: [id number] DOCUMENT ID: [id number] JEOVANNY CARTY MD at 1110 CC: [id number] DICTATION DATE: 10/16/171955 VISUAL EDUCATION DIRECTOR: 10/16/17 2334 DIS IN 10/18/17 [facility] [id number] [place] [address]
[2017-10-15 19:00] VITALS: BP 119/74
[2017-10-15 19:45] VITALS: BP 118/77; BMI 30.8
[2017-10-15 20:00] VITALS: BP 132/74
[2017-10-15] MEDS ORDERED: MACROBID100 MG PO (20:57)
[2017-10-15 21:00] VITALS: BP 125/73
[2017-10-15 22:00] VITALS: BP 118/68
[2017-10-15 22:20] LABS: CKMB 2.6 U/L (0.0-3.6); CREATINE KINASE 84 UL (21-215); PRO BNP 5055 pg/mL (0-125)
[2017-10-15 22:21] LABS: TROPONIN-I 0.864 ng/mL (0.000-0.060)
[2017-10-15 23:00] VITALS: BP 108/68
[2017-10-16] VITALS (24 sets, daily range): BP systolic 103–135; BP diastolic 52–96; BMI 30.9
[2017-10-16 05:13] LABS: BASOPHILS 0.2 % (0-2); EOSINOPHILS 0.1 % (0-7); HEMATOCRIT 28.1 % (36.0-48.0); HEMOGLOBIN 9.4 g/dL (12-16); IMMATURE GRANULOCYTES 0.3 % (0-5); LYMPHOCYTES 6.5 % (15-50); MCH 29.4 pg (26.0-34.0); MCHC 33.5 g/dL (31.0-37.0); MEAN PLATELET VOLUME 11.3 fL (7.4-10.4); MONOCYTES 7.2 % (2-11); NEUTROPHILS 85.7 % (40-80); PLATELET COUNT 252 10x3/uL (130-400); WBC 18.6 10x3/uL (4.8-10.8)
[2017-10-16 05:26] LABS: MCV 87.8 fL (80.0-100.0)
[2017-10-16 05:58] LABS: ALKALINE PHOSPHATASE 69 U/L (46-116); ALT (SGPT) 12 U/L (10-68); BILIRUBIN - TOTAL 1.69 mg/dL (0.2-1.3); CALC OSMOLALITY 272 mosm/kg (275-300); CALCIUM 9.2 mg/dL (8.5-10.1); CARBON DIOXIDE 26.4 mmol/L (21.0-32.0); CHLORIDE - SERUM 102 mmol/L (98-107); CKMB 5.1 U/L (0.0-3.6); CREATINE KINASE 113 UL (21-215); CREATININE - SERUM 0.6 mg/dL (0.6-1.3); GLUCOSE 111 mg/dL (74-106); MAGNESIUM - SERUM 1.9 mg/dL (1.8-2.4); POTASSIUM - SERUM 4.1 mmol/L (3.5-5.1); PROTEIN - SERUM 6.6 g/dL (6.4-8.2); SODIUM 137 mmol/L (136-145); UREA NITROGEN 6 mg/dL (7-18); eGFR NON AFRICAN AMERICAN > 90 mL/min (90-120)
[2017-10-16 06:01] LABS: TROPONIN-I 1.421 ng/mL (0.000-0.060)
[2017-10-16 14:21] LABS: CKMB 5.1 U/L (0.0-3.6); CREATINE KINASE 99 UL (21-215)
[2017-10-16 14:22] LABS: TROPONIN-I 0.903 ng/mL (0.000-0.060)
[2017-10-16 20:08] LABS: CKMB 3.5 U/L (0.0-3.6); CREATINE KINASE 127 UL (21-215)
[2017-10-16 20:09] LABS: TROPONIN-I 0.733 ng/mL (0.000-0.060)
[2017-10-17] VITALS (24 sets, daily range): BP systolic 103–126; BP diastolic 50–75; Ht 175.3 cm; Wt 94.7 kg
[2017-10-17 00:26] LABS: CKMB 3.9 U/L (0.0-3.6); CREATINE KINASE 72 UL (21-215)
[2017-10-17 04:14] LABS: HEMATOCRIT 30.3 % (36.0-48.0); HEMOGLOBIN 10.3 g/dL (12-16); MCH 30.3 pg (26.0-34.0); MCV 89.1 fL (80.0-100.0); MEAN PLATELET VOLUME 11.7 fL (7.4-10.4); PLATELET COUNT 256 10x3/uL (130-400); RDW 19.6 % (11.5-14.5); WBC 22.9 10x3/uL (4.8-10.8)
[2017-10-17 04:43] LABS: ALBUMIN 2.7 g/dL (3.4-5.0); ALKALINE PHOSPHATASE 70 U/L (46-116); ALT (SGPT) 14 U/L (10-68); BILIRUBIN - TOTAL 1.24 mg/dL (0.2-1.3); CALC OSMOLALITY 281 mosm/kg (275-300); CALCIUM 9.9 mg/dL (8.5-10.1); CARBON DIOXIDE 29.4 mmol/L (21.0-32.0); CHLORIDE - SERUM 105 mmol/L (98-107); CREATININE - SERUM 0.7 mg/dL (0.6-1.3); GLUCOSE 134 mg/dL (74-106); POTASSIUM - SERUM 3.6 mmol/L (3.5-5.1); PRO BNP 15953 pg/mL (0-125); PROTEIN - SERUM 6.7 g/dL (6.4-8.2); SODIUM 141 mmol/L (136-145); THYROID STIMULATING HORMONE 1.46 uIU/mL (0.36-3.74); eGFR NON AFRICAN AMERICAN 88 mL/min (90-120)
[2017-10-17 04:49] LABS: UREA NITROGEN 10 mg/dL (7-18)
[2017-10-17 05:11] LABS: LYMPHOCYTES 7 % (15-50); MONOCYTES 6 % (2-11); NEUTROPHILS 85 % (40-80); PLATELET ESTIMATE NORMAL
[2017-10-18] VITALS (17 sets, daily range): BP systolic 100–128; BP diastolic 56–85
[2017-10-18 04:21] LABS: ALBUMIN 2.6 g/dL (3.4-5.0); ANION GAP 5.8 mmol/L (8-16); BILIRUBIN - TOTAL 1.02 mg/dL (0.2-1.3); CALCIUM 10.2 mg/dL (8.5-10.1); MAGNESIUM - SERUM 2.1 mg/dL (1.8-2.4); POTASSIUM - SERUM 3.8 mmol/L (3.5-5.1); PROTEIN - SERUM 6.5 g/dL (6.4-8.2)
[2017-10-18 04:51] LABS: CREATININE - SERUM 0.9 mg/dL (0.6-1.3)
[2017-10-18 05:24] LABS: BASOPHILS 0.1 % (0-2); EOSINOPHILS 0 % (0-7); HEMATOCRIT 30.8 % (36.0-48.0); IMMATURE GRANULOCYTES 0.4 % (0-5); LYMPHOCYTES 4.6 % (15-50); MCH 29.2 pg (26.0-34.0); MCHC 32.5 g/dL (31.0-37.0); MCV 90.1 fL (80.0-100.0); MEAN PLATELET VOLUME 11.9 fL (7.4-10.4); NEUTROPHILS 90.9 % (40-80); PLATELET COUNT 231 10x3/uL (130-400); RBC 3.42 10x6/uL (4.00-5.40); RDW 19.7 % (11.5-14.5); WBC 21.5 10x3/uL (4.8-10.8)
== END 2017-10-18 16:53 | disposition hospice, inpatient (51) | DRG 189 ==
LOC: D.ICU 19:13
PROVIDERS: Family Medicine; Internal Medicine Pulmonary Disease
PROC: 5A09457 Assistance with Respiratory Ventilation, 24-96 Consecutive Hours, Continuous Positive Airway Pressure (ICD-10-PCS; principal; 2017-10-15)
DX: J96.21 Acute and chronic respiratory failure with hypoxia (principal); I21.4 Non-ST elevation (NSTEMI) myocardial infarction; J18.9 Pneumonia, unspecified organism; G93.41 Metabolic encephalopathy; J81.1 Chronic pulmonary edema; E72.20 Disorder of urea cycle metabolism, unspecified; K76.6 Portal hypertension; Y95 Nosocomial condition; K72.90 Hepatic failure, unspecified without coma; I50.9 Heart failure, unspecified; K74.60 Unspecified cirrhosis of liver; D72.829 Elevated white blood cell count, unspecified; M06.9 Rheumatoid arthritis, unspecified; R53.1 Weakness

== ENCOUNTER 2017-10-18 16:26 | Inpatient (IN) | payer OTHER ==
[~2017-10-18] VITALS: Ht 175.3 cm; Wt 94.6 kg
[2017-10-18 16:28] VITALS: BP 111/64; Ht 175.3 cm; Wt 94.6 kg
[2017-10-18 17:00] VITALS: BP 108/59
== END 2017-10-18 20:10 | DRG 951 ==
LOC: D.ICU 16:26
DX: Z51.5 Encounter for palliative care (principal); C18.9 Malignant neoplasm of colon, unspecified